=== PATIENT | male | born 1945 | race Caucasian/White ===

== ENCOUNTER 2021-03-20 04:17 | Day surgery (SDC) | payer OTHER, MEDICARE ==
[2021-03-20] MEDS ORDERED: BUPIVACAINE HCL/PF 0.75% 10 ML VIAL ONE (07:14)
[2021-03-20] MEDS ORDERED: LIDOCAINE HCL/PF 1% SDV 5ML VIAL ONE (07:14)
[2021-03-20] MEDS ORDERED: SODIUM CHLORIDE 0.9% P/F 10 ML VIAL IJ ONE (07:31)
[2021-03-20 08:47] VITALS: BMI 32.0
[2021-03-20] MEDS ORDERED: LIDOCAINE HCL 1% PRESERVATIVE FREE - 30ML VIAL IJ ONE ×2 (10:23)
[2021-03-20] MEDS ORDERED: IOHEXOL 180 MG/1 ML ML IJ ONE ×2 (10:23)
[2021-03-20] MEDS ORDERED: BUPIVACAINE HCL/PF 0.75% 10 ML VIAL PNB ONE ×2 (10:23)
[2021-03-20 10:57] VITALS: BP 130/60; PULSE 56; TEMP 97.7
== END 2021-03-20 11:30 | disposition home or self-care (01) ==
LOC: JASU-SURG 04:17
PROVIDERS: ATTEND Pain Medicine Pain Medicine
PROC: BR16YZZ Fluoroscopy of Lumbar Facet Joint(s) using Other Contrast (ICD-10-PCS; 2021-03-20)
PROC: 3E0T3BZ Introduction of Anesthetic Agent into Peripheral Nerves and Plexi, Percutaneous Approach (ICD-10-PCS; principal; 2021-03-20 09:30)
DX: M47.816 Spondylosis without myelopathy or radiculopathy, lumbar region (principal)
CPT/HCPCS: 76000-TC-FY

== ENCOUNTER 2021-04-10 04:23 | Day surgery (SDC) | payer OTHER, MEDICARE ==
[2021-04-09 19:24] VITALS: BMI 32.3
[~2021-04-10 04:23] MED LIST: BUPIVACAINE HCL/PF 0.75% 10 ML VIAL PNB ONE; IOHEXOL 180 MG/1 ML ML IJ ONE
[2021-04-10] MEDS ORDERED: LIDOCAINE HCL 1% PRESERVATIVE FREE - 30ML VIAL IJ ONE (12:05)
[2021-04-10] MEDS ORDERED: BUPIVACAINE HCL/PF 0.75% 10 ML VIAL PNB ONE (12:11)
[2021-04-10] MEDS ORDERED: IOHEXOL 180 MG/1 ML ML IJ ONE (12:11)
[2021-04-10 15:28] VITALS: BP 130/60; PULSE 60; TEMP 98
== END 2021-04-10 12:45 | disposition home or self-care (01) ==
LOC: JASU-SURG 04:23
PROVIDERS: ATTEND Pain Medicine Pain Medicine
PROC: BR16YZZ Fluoroscopy of Lumbar Facet Joint(s) using Other Contrast (ICD-10-PCS; 2021-04-10)
PROC: 3E0T3BZ Introduction of Anesthetic Agent into Peripheral Nerves and Plexi, Percutaneous Approach (ICD-10-PCS; principal; 2021-04-10 11:00)
DX: M47.816 Spondylosis without myelopathy or radiculopathy, lumbar region (principal)
CPT/HCPCS: 76000-TC-FY

== ENCOUNTER 2021-04-15 07:27 | Day surgery (SDC) | payer OTHER, MEDICARE ==
[2021-04-08 15:25] VITALS: BMI 32.3
[2021-04-15] MEDS: CIPROFLOXACIN 0.3% EYE DROPS 5 ML BOTTLE ONE ×3 (08:05→08:15)
[2021-04-15] MEDS: CYCLOPENTOLATE 2% OPHTH SOLN 2 ML BOTTLE ONE ×3 (08:05→08:15)
[2021-04-15] MEDS: TROPICAMIDE 1% OPHTH SOLN 15 ML BOTTLE ONE ×3 (08:05→08:15)
[2021-04-15] MEDS: PHENYLEPHRINE 2.5% OPHTH SOLN 15 ML BOTTLE ONE ×3 (08:05→08:15)
[2021-04-15 08:21] VITALS: TEMP 98.1
[2021-04-15] MEDS ORDERED: MIDAZOLAM HCL 2 MG/2 ML SINGLE DOSE VIAL ONE (09:29)
[2021-04-15] MEDS ORDERED: LIDOCAINE 1% P/F 10 MG/ML VIAL ONE (09:33)
[2021-04-15] MEDS ORDERED: TETRACAINE 0.5% OPHTH SOLN 2 ML BOTTLE ONE (09:34)
[2021-04-15] MEDS ORDERED: CARBACHOL 0.01% INTRA-OCULAR 1.5 ML VIAL ONE (09:34)
[2021-04-15] MEDS ORDERED: BSS (NA/CA/MG/K) BALANCED SALT SOLUTION OPHTH SOLN 15 ML BOTTLE ONE (09:34)
[2021-04-15] MEDS ORDERED: NEO/POLYMYX B SULF/DEXAMETH OPHTHALMIC 5ML BOTTLE ONE (09:34)
[2021-04-15 11:06] VITALS: BP 129/65; PULSE 56
== END 2021-04-15 11:05 | disposition home or self-care (01) ==
LOC: FASU 07:27
PROVIDERS: ATTEND Ophthalmology
PROC: 08RK3JZ Replacement of Left Lens with Synthetic Substitute, Percutaneous Approach (ICD-10-PCS; principal; 2021-04-15 09:51)
DX: H26.8 Other specified cataract (principal)
CPT/HCPCS: 82962

== ENCOUNTER 2021-05-01 04:21 | Day surgery (SDC) | payer OTHER, MEDICARE ==
[2021-04-30 11:40] VITALS: BMI 32.3
[2021-05-01 16:39] VITALS: BP 130/55; PULSE 55; TEMP 98.2
== END 2021-05-01 16:00 | disposition home or self-care (01) ==
LOC: JASU-SURG 04:21
PROVIDERS: ATTEND Pain Medicine Pain Medicine
PROC: 01HY3MZ Insertion of Neurostimulator Lead into Peripheral Nerve, Percutaneous Approach (ICD-10-PCS; principal; 2021-05-01 15:00)
DX: G89.4 Chronic pain syndrome (principal)
CPT/HCPCS: 64555; C1778; 82962

== ENCOUNTER 2021-05-18 07:31 | Day surgery (SDC) | payer OTHER, MEDICARE ==
[2021-05-15 16:17] VITALS: BMI 32.3
[2021-05-18] MEDS: TROPICAMIDE 1% OPHTH SOLN 15 ML BOTTLE ONE ×3 (08:00→08:10)
[2021-05-18] MEDS: PHENYLEPHRINE 2.5% OPHTH SOLN 15 ML BOTTLE ONE ×3 (08:00→08:10)
[2021-05-18] MEDS: CIPROFLOXACIN 0.3% EYE DROPS 5 ML BOTTLE ONE ×3 (08:00→08:10)
[2021-05-18] MEDS: CYCLOPENTOLATE 2% OPHTH SOLN 2 ML BOTTLE ONE ×3 (08:00→08:10)
[2021-05-18] MEDS ORDERED: CARBACHOL 0.01% INTRA-OCULAR 1.5 ML VIAL ONE (08:26)
[2021-05-18] MEDS ORDERED: NEO/POLYMYX B SULF/DEXAMETH OPHTHALMIC 5ML BOTTLE ONE (08:26)
[2021-05-18] MEDS ORDERED: BSS (NA/CA/MG/K) BALANCED SALT SOLUTION OPHTH SOLN 15 ML BOTTLE ONE (08:26)
[2021-05-18] MEDS ORDERED: LIDOCAINE 1% P/F 10 MG/ML VIAL ONE (08:26)
[2021-05-18] MEDS ORDERED: TETRACAINE 0.5% OPHTH SOLN 2 ML BOTTLE ONE (08:26)
[2021-05-18] MEDS ORDERED: MIDAZOLAM HCL 2 MG/2 ML SINGLE DOSE VIAL ONE (09:30)
[2021-05-18 10:31] VITALS: PULSE 63; TEMP 97.7
[2021-05-18 10:32] VITALS: BP 148/55
== END 2021-05-18 10:38 | disposition home or self-care (01) ==
LOC: FASU 07:31 → MERGE 08:00 → FASU 10:38
PROVIDERS: ATTEND Ophthalmology
PROC: 08RJ3JZ Replacement of Right Lens with Synthetic Substitute, Percutaneous Approach (ICD-10-PCS; principal; 2021-05-18 09:36)
DX: H26.8 Other specified cataract (principal)
CPT/HCPCS: 82962

== ENCOUNTER 2021-08-14 04:21 | Day surgery (SDC) | payer OTHER, MEDICARE ==
[2021-08-12 17:49] VITALS: BMI 32.7
[2021-08-14] MEDS ORDERED: BUPIVACAINE HCL/PF 0.75% 10 ML VIAL ONE (07:32)
[2021-08-14] MEDS ORDERED: DEXAMETHASONE SOD PHOSPHATE 10 MG/1 ML VIAL ONE (07:34)
[2021-08-14] MEDS ORDERED: LIDOCAINE HCL/PF 1% SDV 5ML VIAL ONE (07:38)
[2021-08-14] MEDS ORDERED: LIDOCAINE HCL/PF 2% SDV 5ML VIAL ONE (07:38)
[2021-08-14] MEDS ORDERED: BUPIVACAINE HCL/PF 0.5% (5MG/ML) 10 ML VIAL ONE (07:48)
[2021-08-14] MEDS ORDERED: DEXAMETHASONE SOD PHOSPHATE 10 MG/1 ML VIAL IVPUSH ONE (10:11)
[2021-08-14] MEDS ORDERED: IOHEXOL 180 MG/1 ML ML IJ ONE (10:11)
[2021-08-14] MEDS ORDERED: LIDOCAINE HCL/PF 2% SDV 5ML VIAL PNB ONE (10:11)
[2021-08-14] MEDS ORDERED: LIDOCAINE 1% P/F 10 MG/ML VIAL PNB ONE (10:11)
[2021-08-14] MEDS ORDERED: BUPIVACAINE HCL/PF 0.75% 10 ML VIAL PNB ONE (10:12)
[2021-08-14 10:56] VITALS: BP 165/79; PULSE 65; TEMP 98.5
== END 2021-08-14 11:00 | disposition home or self-care (01) ==
LOC: JASU-SURG 04:21
PROVIDERS: ATTEND Pain Medicine Pain Medicine
PROC: 3E0T3TZ Introduction of Destructive Agent into Peripheral Nerves and Plexi, Percutaneous Approach (ICD-10-PCS; principal; 2021-08-14 09:30)
PROC: BR16YZZ Fluoroscopy of Lumbar Facet Joint(s) using Other Contrast (ICD-10-PCS; 2021-08-14 09:30)
DX: M47.816 Spondylosis without myelopathy or radiculopathy, lumbar region (principal)
CPT/HCPCS: 76000-TC-FY; J1100

== ENCOUNTER 2021-09-08 04:34 | Day surgery (SDC) | payer OTHER, MEDICARE ==
[2021-09-04 18:43] VITALS: BMI 32.7
[2021-09-08] MEDS ORDERED: LIDOCAINE HCL/PF 2% SDV 5ML VIAL ONE (11:09)
[2021-09-08] MEDS ORDERED: LIDOCAINE HCL 1% PRESERVATIVE FREE - 30ML VIAL IJ ONE ×2 (11:26)
[2021-09-08] MEDS ORDERED: LIDOCAINE HCL 2% (50ML VIAL) INF ONE ×2 (11:27)
[2021-09-08] MEDS ORDERED: BUPIVACAINE HCL/PF 0.75% 10 ML VIAL NR ONE ×2 (11:28)
[2021-09-08] MEDS ORDERED: DEXAMETHASONE SOD PHOSPHATE 10 MG/1 ML VIAL IM ONE (11:28)
[2021-09-08] MEDS ORDERED: IOHEXOL 180 MG/1 ML ML IJ ONE (11:29)
[2021-09-08 12:56] VITALS: BP 153/62; PULSE 52; TEMP 97.7
== END 2021-09-08 12:05 | disposition home or self-care (01) ==
LOC: JASU-SURG 04:34
PROVIDERS: ATTEND Pain Medicine Pain Medicine
PROC: 3E0T3TZ Introduction of Destructive Agent into Peripheral Nerves and Plexi, Percutaneous Approach (ICD-10-PCS; principal; 2021-09-08 10:15)
DX: M47.816 Spondylosis without myelopathy or radiculopathy, lumbar region (principal)
CPT/HCPCS: 76000-TC-FY; J1100

== ENCOUNTER 2021-11-14 20:15 | Emergency (ER) | payer OTHER, MEDICARE ==
[2021-11-14 20:52] VITALS: TEMP 98.9; BMI 32.3
[2021-11-14] MEDS ORDERED: IBUPROFEN 600 MG TABLET (FP) PO ONE ×2 (21:13→21:15)
[2021-11-14] MEDS ORDERED: ACETAMINOPHEN 325 MG TABLET (FP) PO ONE (21:19)
[2021-11-14] MEDS ORDERED: ACETAMINOPHEN 325 MG TABLET (FP) ONE (21:58)
[2021-11-14 22:26] VITALS: BP 128/68; PULSE 65
== END 2021-11-14 22:55 | disposition home or self-care (01) ==
LOC: JER 20:15
DX: M79.604 Pain in right leg (principal)
CPT/HCPCS: 93971-TC; 99283-25

== ENCOUNTER 2021-11-20 14:38 | Emergency (ER) | payer OTHER, MEDICARE ==
[2021-11-20 14:52] VITALS: TEMP 98; BMI 37.4
[2021-11-20 16:00] VITALS: BP 147/63; PULSE 67
== END 2021-11-20 16:55 | disposition home or self-care (01) ==
LOC: JER 14:38
DX: J06.9 Acute upper respiratory infection, unspecified (principal)
CPT/HCPCS: 87804; 99283-25; C9803; U0003; U0005

== ENCOUNTER 2021-11-22 10:15 | Emergency (ER) | payer OTHER, MEDICARE ==
[2021-11-22 10:40] VITALS: BMI 37.4
[2021-11-22] MEDS ORDERED: ACETAMINOPHEN 500 MG TABLET (FP) PO ONE (12:13)
[2021-11-22] MEDS ORDERED: ACETAMINOPHEN 325 MG TABLET (FP) ONE (12:54)
[2021-11-22 14:39] VITALS: TEMP 99.9
[2021-11-22 15:24] LABS: BASO % 0.3 % (0-2.0); EOS % 0.1 % (0-4.5); HEMATOCRIT 40.9 % (35.4-49); HEMOGLOBIN 13.4 GM/dL (11.7-16.9); LYMPH % 12.2 % (8-40); MCHC 32.8 g/dl (32.0-35.9); MEAN CELL VOLUME 91.3 fl (80-96); MEAN PLT VOLUME 8.3 fl (7.5-11.1); NEUT % 81.4 % (42.8-82.8); PH,URINE 7.5 (5.0-8.0); PLATELET COUNT 167 10^3/uL (134-434); RBC 4.47 M/mm3 (4.00-5.60); RDW 14.4 % (11.9-15.9); URINE APPEARANCE CLEAR; URINE BILIRUBIN NEGATIVE (NEGATIVE); URINE COLOR YELLOW; URINE GLUCOSE (UA) NEGATIVE (NEGATIVE); URINE KETONE NEGATIVE (NEGATIVE); URINE LEUK ESTERASE NEGATIVE (NEGATIVE); URINE NITRITE NEGATIVE (NEGATIVE); URINE PROTEIN NEGATIVE (NEGATIVE); URINE UROBILINOGEN 0.2 mg/dL (0.2-1.0); WHITE BLOOD COUNT 9.8 K/mm3 (4.0-10.0)
[2021-11-22 15:55] LABS: CALCIUM 8.7 mg/dL (8.5-10.1)
[2021-11-22 15:59] LABS: CREATININE 1.2 mg/dL (0.55-1.3)
[2021-11-22 16:00] LABS: BILIRUBIN,TOTAL 0.8 mg/dL (0.2-1); TOT PROT 6.5 g/dl (6.4-8.2)
[2021-11-22] MEDS ORDERED: SOTROVIMAB 500 MG in SODIUM CHLORIDE 100 ML IVPB ONE (17:27)
[2021-11-22 21:21] VITALS: BP 126/75; PULSE 69
== END 2021-11-22 21:41 | disposition home or self-care (01) ==
LOC: JER 10:15
PROC: 3E033GC Introduction of Other Therapeutic Substance into Peripheral Vein, Percutaneous Approach (ICD-10-PCS; principal; 2021-11-22)
DX: M25.551 Pain in right hip (principal); U07.1 COVID-19
CPT/HCPCS: 36415; 71045-TC-FY; 73523-TC-FY; 80053; 81003; 85025; 87040; 87086; 87804; 93005; 93010; 99285-25; C9803; M0247; Q0247; U0003; U0005

== ENCOUNTER 2022-03-02 04:32 | Day surgery (SDC) | payer OTHER, MEDICARE ==
[2022-02-26 16:46] VITALS: BMI 32.3
[~2022-03-02 04:32] MED LIST changes: -BUPIVACAINE HCL/PF 0.75% 10 ML VIAL PNB ONE; +DEXAMETHASONE SOD PHOSPHATE 10 MG/1 ML VIAL IVPUSH ONE; -IOHEXOL 180 MG/1 ML ML IJ ONE
[2022-03-02] MEDS ORDERED: DEXAMETHASONE SOD PHOSPHATE 10 MG/1 ML VIAL ONE (07:38)
[2022-03-02] MEDS ORDERED: LIDOCAINE HCL/PF 1% SDV 5ML VIAL ONE (07:38)
[2022-03-02] MEDS ORDERED: LIDOCAINE HCL 1% PRESERVATIVE FREE - 30ML VIAL IJ ONE ×2 (09:03)
[2022-03-02] MEDS ORDERED: IOHEXOL 180 MG/1 ML ML IJ ONE ×2 (09:06)
[2022-03-02] MEDS ORDERED: DEXAMETHASONE SOD PHOSPHATE 10 MG/1 ML VIAL IVPUSH ONE (09:12)
[2022-03-02 10:11] VITALS: BP 140/70; PULSE 68; TEMP 98
== END 2022-03-02 10:05 | disposition home or self-care (01) ==
LOC: JASU-SURG 04:32
PROVIDERS: ATTEND Pain Medicine Pain Medicine
PROC: 3E0R33Z Introduction of Anti-inflammatory into Spinal Canal, Percutaneous Approach (ICD-10-PCS; 2022-03-02)
PROC: B01BYZZ Fluoroscopy of Spinal Cord using Other Contrast (ICD-10-PCS; 2022-03-02)
PROC: 3E0R3BZ Introduction of Anesthetic Agent into Spinal Canal, Percutaneous Approach (ICD-10-PCS; principal; 2022-03-02 08:30)
DX: M54.16 Radiculopathy, lumbar region (principal); M48.061 Spinal stenosis, lumbar region without neurogenic claudication; I10 Essential (primary) hypertension; E11.9 Type 2 diabetes mellitus without complications
CPT/HCPCS: 76000-TC-FY; J1100

== ENCOUNTER → 2022-04-20 | Day surgery (SDC) | payer OTHER, MEDICARE ==
[2022-04-15 15:44] VITALS: BMI 32.3
[~2022-04-20] MED LIST changes: +BUPIVACAINE HCL/PF 0.75% 10 ML VIAL ONE; -DEXAMETHASONE SOD PHOSPHATE 10 MG/1 ML VIAL IVPUSH ONE; +LIDOCAINE HCL/PF 1% SDV 5ML VIAL ONE; +LIDOCAINE HCL/PF 2% SDV 5ML VIAL ONE
== END | disposition home or self-care (01) ==
LOC: JASU-SURG 04:04
PROVIDERS: ATTEND Pain Medicine Pain Medicine
DX: Z53.8 Procedure and treatment not carried out for other reasons (principal)

== ENCOUNTER 2022-05-21 04:02 | Day surgery (SDC) | payer OTHER, MEDICARE ==
[2022-05-19 09:51] VITALS: BMI 32.3
[2022-05-21] MEDS ORDERED: BUPIVACAINE HCL/PF 0.75% 10 ML VIAL ONE (07:12)
[2022-05-21] MEDS ORDERED: LIDOCAINE HCL/PF 1% SDV 5ML VIAL ONE (07:13)
[2022-05-21] MEDS ORDERED: LIDOCAINE 1% P/F 10 MG/ML VIAL INF ONE ×3 (07:22→08:24)
[2022-05-21] MEDS ORDERED: DEXAMETHASONE SOD PHOSPHATE 10 MG/1 ML VIAL ONE (07:27)
[2022-05-21] MEDS ORDERED: LIDOCAINE HCL/PF 2% SDV 5ML VIAL ONE (07:28)
[2022-05-21] MEDS ORDERED: IOHEXOL 180 MG/1 ML ML IJ ONE ×2 (07:29→08:24)
[2022-05-21] MEDS ORDERED: DEXAMETHASONE SOD PHOSPHATE 10 MG/1 ML VIAL IVPUSH ONE ×2 (07:30→08:25)
[2022-05-21] MEDS ORDERED: BUPIVACAINE HCL/PF 0.75% 10 ML VIAL NR ONE ×2 (08:25)
[2022-05-21] MEDS ORDERED: LIDOCAINE HCL 2% 100 MG/5 ML DISP.SYRIN NR ONE (08:30)
[2022-05-21 09:10] VITALS: BP 110/61; PULSE 65; TEMP 98.7
== END 2022-05-21 09:24 | disposition home or self-care (01) ==
LOC: JASU-SURG 04:02
PROVIDERS: ATTEND Pain Medicine Pain Medicine
PROC: 3E0T3TZ Introduction of Destructive Agent into Peripheral Nerves and Plexi, Percutaneous Approach (ICD-10-PCS; principal; 2022-05-21 08:45)
PROC: BR16YZZ Fluoroscopy of Lumbar Facet Joint(s) using Other Contrast (ICD-10-PCS; 2022-05-21 08:45)
DX: M47.816 Spondylosis without myelopathy or radiculopathy, lumbar region (principal)
CPT/HCPCS: 76000-TC-FY; J1100

== ENCOUNTER 2022-06-29 04:21 | Day surgery (SDC) | payer OTHER, MEDICARE ==
[2022-06-28 09:29] VITALS: BMI 34.1
[2022-06-29] MEDS ORDERED: BUPIVACAINE HCL/PF 0.5% (5MG/ML) 10 ML VIAL ONE (07:16)
[2022-06-29] MEDS ORDERED: LIDOCAINE HCL/PF 1% SDV 5ML VIAL ONE (07:16)
[2022-06-29] MEDS ORDERED: TRIAMCINOLONE ACET 40MG/1ML VIAL ONE (07:16)
[2022-06-29] MEDS ORDERED: MIDAZOLAM HCL 2 MG/2 ML SINGLE DOSE VIAL ONE (10:53)
[2022-06-29] MEDS ORDERED: LIDOCAINE HCL/PF 2% SDV 5ML VIAL ONE (11:08)
[2022-06-29] MEDS ORDERED: ceFAZolin SODIUM 1 GM VIAL ONE (11:31)
[2022-06-29] MEDS ORDERED: DEXAMETHASONE SOD PHOSPHATE 4 MG/1 ML VIAL ONE (11:31)
[2022-06-29] MEDS ORDERED: ONDANSETRON 4 MG/2 ML VIAL ONE (11:31)
[2022-06-29] MEDS ORDERED: ceFAZolin SODIUM 1 GM VIAL IVPB ONE (11:32)
[2022-06-29] MEDS ORDERED: LIDOCAINE HCL 1% PRESERVATIVE FREE - 30ML VIAL IJ ONE (11:37)
[2022-06-29] MEDS ORDERED: LIDOCAINE HCL/PF 2% SDV 5ML VIAL SQ ONE (11:38)
[2022-06-29 13:43] VITALS: RESP 20
[2022-06-29] MEDS ORDERED: oxyCODONE HCL 10 MG SUSTAINED ACTING TABLET ONE (14:15)
[2022-06-29 17:40] VITALS: BP 146/66; PULSE 78; TEMP 97.6
== END 2022-06-29 15:45 | disposition home or self-care (01) ==
LOC: JASU-SURG 04:21
PROVIDERS: ATTEND Pain Medicine Pain Medicine
PROC: BR19ZZZ Fluoroscopy of Lumbar Spine (ICD-10-PCS; 2022-06-29)
PROC: 01NB3ZZ Release Lumbar Nerve, Percutaneous Approach (ICD-10-PCS; principal; 2022-06-29 10:30)
DX: M48.062 Spinal stenosis, lumbar region with neurogenic claudication (principal)
CPT/HCPCS: 0275T; C1889; 76000-TC-FY; 82962; 88304-TC; 88311-TC

== ENCOUNTER 2022-09-07 04:33 | Day surgery (SDC) | payer OTHER, MEDICARE ==
[2022-09-06 12:23] VITALS: BMI 31.5
[2022-09-07] MEDS ORDERED: TRIAMCINOLONE ACET 40MG/1ML VIAL ONE ×2 (07:34→11:54)
[2022-09-07] MEDS ORDERED: BUPIVACAINE HCL/PF 0.5% (5MG/ML) 10 ML VIAL ONE ×2 (07:35→11:46)
[2022-09-07] MEDS ORDERED: LIDOCAINE HCL/PF 1% SDV 5ML VIAL ONE (07:35)
[2022-09-07] MEDS ORDERED: LIDOCAINE HCL 1% PRESERVATIVE FREE - 30ML VIAL IJ ONE (11:56)
[2022-09-07] MEDS ORDERED: TRIAMCINOLONE ACETONIDE 40 MG/ML 10 ML VIAL IJ ONE (11:58)
[2022-09-07] MEDS ORDERED: BUPIVACAINE HCL/PF 0.5% (5 MG/ML) 30 ML VIAL IJ ONE ×2 (11:58)
[2022-09-07] MEDS ORDERED: IOHEXOL 180 MG/1 ML ML IJ ONE (11:59)
[2022-09-07 16:10] VITALS: RESP 20
[2022-09-07 17:43] VITALS: BP 130/80; PULSE 70; TEMP 98
== END 2022-09-07 13:00 | disposition home or self-care (01) ==
LOC: JASU-SURG 04:33
PROVIDERS: ATTEND Pain Medicine Pain Medicine
PROC: 3E0U3BZ Introduction of Anesthetic Agent into Joints, Percutaneous Approach (ICD-10-PCS; 2022-09-07)
PROC: 3E0U33Z Introduction of Anti-inflammatory into Joints, Percutaneous Approach (ICD-10-PCS; principal; 2022-09-07 11:30)
DX: M53.3 Sacrococcygeal disorders, not elsewhere classified (principal)
CPT/HCPCS: 76000-TC-FY

== ENCOUNTER 2022-11-17 04:05 | Inpatient (IN) | payer OTHER, MEDICARE ==
[2022-11-11 11:49] VITALS: BMI 30.1
[~2022-11-17 04:05] MED LIST changes: +BUPIVACAINE HCL/PF 0.5% (5MG/ML) 10 ML VIAL IJ ONE; -BUPIVACAINE HCL/PF 0.75% 10 ML VIAL ONE; -LIDOCAINE HCL/PF 1% SDV 5ML VIAL ONE; -LIDOCAINE HCL/PF 2% SDV 5ML VIAL ONE
[2022-11-17] MEDS ORDERED: ceFAZolin SODIUM 1 GM VIAL ONE ×2 (07:29→16:20)
[2022-11-17] MEDS ORDERED: THROMBIN (BOVINE) 5,000 UNIT VIAL TP ONE ×2 (07:29→09:02)
[2022-11-17] MEDS ORDERED: BACITRACIN 15 GM TUBE TOPICAL OINTMENT ONE (07:30)
[2022-11-17] MEDS ORDERED: BUPIVACAINE HCL/PF 0.5% (5MG/ML) 10 ML VIAL ONE (07:30)
[2022-11-17] MEDS ORDERED: LIDOCAINE HCL/PF 2% SDV 5ML VIAL ONE (07:34)
[2022-11-17] MEDS ORDERED: FENTANYL CITRATE/PF 50 MCG/ML VIAL ONE ×3 (07:34→12:05)
[2022-11-17] MEDS ORDERED: ONDANSETRON 4 MG/2 ML VIAL ONE (07:34)
[2022-11-17] MEDS ORDERED: DEXAMETHASONE SOD PHOSPHATE 4 MG/1 ML VIAL ONE (07:34)
[2022-11-17] MEDS ORDERED: ROCURONIUM BROMIDE 50 MG/5 ML SYRINGE ONE ×2 (07:35→08:54)
[2022-11-17] MEDS ORDERED: MIDAZOLAM HCL 2 MG/2 ML SINGLE DOSE VIAL ONE (07:35)
[2022-11-17] MEDS ORDERED: PROPOFOL 20 ML ONE ×2 (07:35→10:45)
[2022-11-17] MEDS ORDERED: ceFAZolin 2 GRAM PREMIX BAG IVPB ONE (08:34)
[2022-11-17] MEDS ORDERED: ceFAZolin SODIUM 1 GM VIAL IVPB ONE (09:04)
[2022-11-17] MEDS ORDERED: HYDROmorphone HCl 2 MG/ML VIAL ONE ×2 (09:48→12:23)
[2022-11-17] MEDS ORDERED: NEOSTIGMINE METHYLSULFATE 0.5 MG/ML - 10 ML MDV ONE (10:29)
[2022-11-17] MEDS ORDERED: GLYCOPYRROLATE 0.2 MG/1 ML VIAL ONE (10:30)
[2022-11-17] MEDS: LACTATED RINGERS SOLUTION 1,000 ML IV SCH (11:01)
[2022-11-17] MEDS ORDERED: ONDANSETRON 4 MG/2 ML VIAL IVPUSH PRN ×2 (11:09→12:01)
[2022-11-17] MEDS ORDERED: diphenhydrAMINE HCL 25 MG CAPSULE (FP) PO PRN (11:09)
[2022-11-17] MEDS ORDERED: LACTATED RINGERS SOLUTION 1,000 ML/1,000 ML INFUS.BAG IV SCH (11:15)
[2022-11-17] MEDS ORDERED: HEPARIN NA (PORCINE) 5,000 UNITS/ML 1ML VIAL SQ SCH (11:15)
[2022-11-17] MEDS: PATIENT'S OWN MEDICATION (NON-FORMULARY) (Evolocumab [Repatha Sureclick] 140 MG/ML Pen.Inj SQ SCH (11:30)
[2022-11-17] MEDS ORDERED: ACETAMINOPHEN 1000 MG/100 ML BAG IVPB SCH (11:45)
[2022-11-17] MEDS ORDERED: PROMETHAZINE HCL 25 MG/1 ML VIAL IVPUSH PRN (12:01)
[2022-11-17] MEDS ORDERED: ACETAMINOPHEN 1000 MG/100 ML BAG IVPB ONE (12:02)
[2022-11-17] MEDS ORDERED: HYDROmorphone HCL CARPU-JECT 2 MG/1 ML DISP.SYRIN IVPUSH PRN (12:02)
[2022-11-17] MEDS: HYDROmorphone HCL CARPU-JECT 2 MG/1 ML DISP.SYRIN IVPUSH PRN ×4 (12:25→14:14)
[2022-11-17] MEDS: HYDROmorphone *PCA* 10MG/50ML DISP.SYRIN PCA SCH (13:00)
[2022-11-17] MEDS: DOCUSATE SODIUM 100 MG CAPSULE (FP) PO SCH ×2 (14:00→23:12)
[2022-11-17] MEDS: GABAPENTIN 300 MG CAPSULE PO SCH ×2 (14:00→23:12)
[2022-11-17] MEDS: CEFAZOLIN 1 GM in DEXTROSE 5%-WATER - 50 ML IVPB SCH (16:31)
[2022-11-17] MEDS ORDERED: ACETAMINOPHEN INJECTION 100 ML IVPB ONE (17:39)
[2022-11-17] MEDS: ACETAMINOPHEN 1000 MG/100 ML BAG IVPB SCH (18:00)
[2022-11-17] MEDS ORDERED: CEFAZOLIN 1 GM in DEXTROSE 5%-WATER - 50 ML IVPB SCH (18:00)
[2022-11-17] MEDS: INSULIN SLIDING SCALE (NOVOLOG) 1 VIAL SQ SCH ×2 (18:01→21:11)
[2022-11-17] MEDS: POTASSIUM CITRATE 15 MEQ PO SCH (22:00)
[2022-11-18] MEDS: ACETAMINOPHEN 1000 MG/100 ML BAG IVPB SCH ×3 (00:43→11:42)
[2022-11-18] MEDS: CEFAZOLIN 1 GM in DEXTROSE 5%-WATER - 50 ML IVPB SCH (00:47)
[2022-11-18] MEDS: DOCUSATE SODIUM 100 MG CAPSULE (FP) PO SCH ×3 (05:33→21:59)
[2022-11-18] MEDS: GABAPENTIN 300 MG CAPSULE PO SCH ×3 (05:34→21:59)
[2022-11-18] MEDS: LEVOTHYROXINE NA 112 MCG TABLET (FP) PO SCH (06:02)
[2022-11-18] MEDS: INSULIN SLIDING SCALE (NOVOLOG) 1 VIAL SQ SCH ×4 (06:08→22:09)
[2022-11-18] MEDS: LORATADINE 10 MG TABLET PO SCH (10:04)
[2022-11-18] MEDS: FOLIC ACID 1 MG TABLET (FP) PO SCH (10:04)
[2022-11-18] MEDS: DULoxetine HCL 30 MG CAPSULE.DR PO SCH (10:04)
[2022-11-18] MEDS: FERROUS SO4 325 MG TABLET (FP) PO SCH (10:04)
[2022-11-18] MEDS: DOXAZOSIN MESYLATE 8 MG TABLET PO SCH (10:05)
[2022-11-18 10:45] LABS: HEMATOCRIT 34.3 % (35.4-49); HEMOGLOBIN 11.1 GM/dL (11.7-16.9); MCH 29.9 pg (25.7-33.7); MCHC 32.4 g/dl (32.0-35.9); MEAN CELL VOLUME 92.3 fl (80-96); MEAN PLT VOLUME 8.5 fl (7.5-11.1); PLATELET COUNT 201 10^3/uL (134-434); RBC 3.72 M/mm3 (4.00-5.60); RDW 14.7 % (11.9-15.9); WHITE BLOOD COUNT 7.4 K/mm3 (4.0-10.0)
[2022-11-18 11:09] LABS: CALCIUM 8.6 mg/dL (8.5-10.1)
[2022-11-18 11:10] LABS: BLOOD UREA NITROGEN 17.4 mg/dL (7-18)
[2022-11-18] MEDS: PATIENT'S OWN MEDICATION (NON-FORMULARY) (Evolocumab [Repatha Sureclick] 140 MG/ML Pen.Inj SQ SCH (11:30)
[2022-11-18] MEDS: LACTATED RINGERS SOLUTION 1,000 ML IV SCH (12:15)
[2022-11-18] MEDS: FENOFIBRIC ACID 135 MG CAP PO SCH (12:21)
[2022-11-18] MEDS: HYDROmorphone *PCA* 10MG/50ML DISP.SYRIN PCA SCH (13:30)
[2022-11-18] MEDS ORDERED: LACTULOSE 20 GM/30 ML UDC (FOR ORAL USE ONLY) PO PRN (16:34)
[2022-11-18] MEDS ORDERED: LACTATED RINGERS SOLUTION 1,000 ML IV SCH (16:34)
[2022-11-18] MEDS: HEPARIN NA (PORCINE) 5,000 UNITS/ML 1ML VIAL SQ SCH ×2 (17:34→21:59)
[2022-11-19] MEDS: HEPARIN NA (PORCINE) 5,000 UNITS/ML 1ML VIAL SQ SCH ×3 (06:12→21:49)
[2022-11-19] MEDS: GABAPENTIN 300 MG CAPSULE PO SCH ×3 (06:12→21:49)
[2022-11-19] MEDS: DOCUSATE SODIUM 100 MG CAPSULE (FP) PO SCH ×3 (06:12→21:49)
[2022-11-19] MEDS: INSULIN SLIDING SCALE (NOVOLOG) 1 VIAL SQ SCH ×4 (06:22→22:44)
[2022-11-19] MEDS: LEVOTHYROXINE NA 112 MCG TABLET (FP) PO SCH (06:23)
[2022-11-19 10:11] LABS: HEMATOCRIT 33.4 % (35.4-49); HEMOGLOBIN 10.7 GM/dL (11.7-16.9); MCH 29.7 pg (25.7-33.7); MCHC 32.2 g/dl (32.0-35.9); MEAN CELL VOLUME 92.1 fl (80-96); MEAN PLT VOLUME 8.7 fl (7.5-11.1); PLATELET COUNT 196 10^3/uL (134-434); RBC 3.62 M/mm3 (4.00-5.60); RDW 14.5 % (11.9-15.9)
[2022-11-19 10:29] LABS: BLOOD UREA NITROGEN 12.1 mg/dL (7-18)
[2022-11-19 10:30] LABS: CALCIUM 8.5 mg/dL (8.5-10.1)
[2022-11-19 10:33] LABS: CREATININE 0.8 mg/dL (0.55-1.3)
[2022-11-19] MEDS: DOXAZOSIN MESYLATE 8 MG TABLET PO SCH (10:53)
[2022-11-19] MEDS: DULoxetine HCL 30 MG CAPSULE.DR PO SCH (10:54)
[2022-11-19] MEDS: LORATADINE 10 MG TABLET PO SCH (10:54)
[2022-11-19] MEDS: FERROUS SO4 325 MG TABLET (FP) PO SCH (10:54)
[2022-11-19] MEDS: FOLIC ACID 1 MG TABLET (FP) PO SCH (10:54)
[2022-11-19] MEDS ORDERED: oxyCODONE HCL 5 MG TABLET PO PRN (11:07)
[2022-11-19] MEDS: FENOFIBRIC ACID 135 MG CAP PO SCH (12:28)
[2022-11-19] MEDS: HYDROmorphone *PCA* 10MG/50ML DISP.SYRIN PCA SCH (13:05)
[2022-11-19] MEDS: oxyCODONE HCL 5 MG TABLET PO PRN ×2 (18:02→21:50)
[2022-11-19] MEDS: POTASSIUM CITRATE 15 MEQ PO SCH (19:28)
[2022-11-19] MEDS ORDERED: INSULIN (NOVOLOG) ASPART 100 UNITS/ML 10ML VIAL ONE (22:53)
[2022-11-20] MEDS: oxyCODONE HCL 5 MG TABLET PO PRN ×2 (04:16→09:50)
[2022-11-20] MEDS: GABAPENTIN 300 MG CAPSULE PO SCH ×3 (07:04→22:10)
[2022-11-20] MEDS: HEPARIN NA (PORCINE) 5,000 UNITS/ML 1ML VIAL SQ SCH ×3 (07:04→22:10)
[2022-11-20] MEDS: DOCUSATE SODIUM 100 MG CAPSULE (FP) PO SCH ×3 (07:04→22:10)
[2022-11-20] MEDS: LEVOTHYROXINE NA 112 MCG TABLET (FP) PO SCH (07:34)
[2022-11-20] MEDS: INSULIN SLIDING SCALE (NOVOLOG) 1 VIAL SQ SCH ×4 (07:44→22:18)
[2022-11-20 09:20] LABS: HEMATOCRIT 32.1 % (35.4-49); HEMOGLOBIN 10.6 GM/dL (11.7-16.9); MCH 30.3 pg (25.7-33.7); MCHC 33.1 g/dl (32.0-35.9); MEAN CELL VOLUME 91.6 fl (80-96); MEAN PLT VOLUME 8.5 fl (7.5-11.1); PLATELET COUNT 226 10^3/uL (134-434); RBC 3.51 M/mm3 (4.00-5.60); RDW 14.2 % (11.9-15.9)
[2022-11-20] MEDS: LORATADINE 10 MG TABLET PO SCH (09:49)
[2022-11-20] MEDS: FERROUS SO4 325 MG TABLET (FP) PO SCH (09:49)
[2022-11-20] MEDS: DULoxetine HCL 30 MG CAPSULE.DR PO SCH (09:49)
[2022-11-20] MEDS: FOLIC ACID 1 MG TABLET (FP) PO SCH (09:49)
[2022-11-20 09:54] LABS: BLOOD UREA NITROGEN 9.7 mg/dL (7-18)
[2022-11-20 09:57] LABS: CREATININE 0.8 mg/dL (0.55-1.3)
[2022-11-20] MEDS: DOXAZOSIN MESYLATE 8 MG TABLET PO SCH (09:58)
[2022-11-20] MEDS ORDERED: oxyCODONE HCL 5 MG TABLET PO PRN (10:37)
[2022-11-20] MEDS ORDERED: INSULIN (NOVOLOG) ASPART 100 UNITS/ML 10ML VIAL ONE ×2 (11:35→17:14)
[2022-11-20] MEDS: FENOFIBRIC ACID 135 MG CAP PO SCH (11:38)
[2022-11-20] MEDS: POLYETHYLENE GLYCOL (HEALTHYLAX) 3350 17 GM PACKET PO SCH (18:14)
[2022-11-21] MEDS: DOCUSATE SODIUM 100 MG CAPSULE (FP) PO SCH ×3 (06:38→22:24)
[2022-11-21] MEDS: GABAPENTIN 300 MG CAPSULE PO SCH ×3 (06:39→22:24)
[2022-11-21] MEDS: HEPARIN NA (PORCINE) 5,000 UNITS/ML 1ML VIAL SQ SCH ×3 (06:39→22:24)
[2022-11-21] MEDS: LEVOTHYROXINE NA 112 MCG TABLET (FP) PO SCH (06:39)
[2022-11-21] MEDS: INSULIN SLIDING SCALE (NOVOLOG) 1 VIAL SQ SCH ×4 (06:45→22:25)
[2022-11-21] MEDS: DULoxetine HCL 30 MG CAPSULE.DR PO SCH (09:50)
[2022-11-21] MEDS: FOLIC ACID 1 MG TABLET (FP) PO SCH (09:50)
[2022-11-21] MEDS: DOXAZOSIN MESYLATE 8 MG TABLET PO SCH (09:50)
[2022-11-21] MEDS: FERROUS SO4 325 MG TABLET (FP) PO SCH (09:50)
[2022-11-21] MEDS: LORATADINE 10 MG TABLET PO SCH (09:50)
[2022-11-21] MEDS: POLYETHYLENE GLYCOL (HEALTHYLAX) 3350 17 GM PACKET PO SCH (09:51)
[2022-11-21] MEDS: FENOFIBRIC ACID 135 MG CAP PO SCH (13:28)
[2022-11-21] MEDS ORDERED: ACETAMINOPHEN 325 MG TABLET (FP) PO PRN (13:29)
[2022-11-21] MEDS: oxyCODONE HCL 5 MG TABLET PO PRN ×2 (18:32→22:30)
[2022-11-22] MEDS: GABAPENTIN 300 MG CAPSULE PO SCH ×3 (06:56→22:09)
[2022-11-22] MEDS: LEVOTHYROXINE NA 112 MCG TABLET (FP) PO SCH (06:56)
[2022-11-22] MEDS: DOCUSATE SODIUM 100 MG CAPSULE (FP) PO SCH ×3 (06:56→22:09)
[2022-11-22] MEDS: HEPARIN NA (PORCINE) 5,000 UNITS/ML 1ML VIAL SQ SCH ×3 (06:56→22:09)
[2022-11-22] MEDS: oxyCODONE HCL 5 MG TABLET PO PRN ×3 (07:21→22:11)
[2022-11-22] MEDS: INSULIN SLIDING SCALE (NOVOLOG) 1 VIAL SQ SCH ×4 (07:22→22:15)
[2022-11-22] MEDS: FERROUS SO4 325 MG TABLET (FP) PO SCH (10:52)
[2022-11-22] MEDS: POLYETHYLENE GLYCOL (HEALTHYLAX) 3350 17 GM PACKET PO SCH (10:52)
[2022-11-22] MEDS: LORATADINE 10 MG TABLET PO SCH (10:52)
[2022-11-22] MEDS: DULoxetine HCL 30 MG CAPSULE.DR PO SCH (10:52)
[2022-11-22] MEDS: FOLIC ACID 1 MG TABLET (FP) PO SCH (10:52)
[2022-11-22] MEDS: FENOFIBRIC ACID 135 MG CAP PO SCH (11:05)
[2022-11-22] MEDS: DOXAZOSIN MESYLATE 4 MG TABLET PO SCH (11:05)
[2022-11-22] MEDS ORDERED: oxyCODONE HCL 5 MG TABLET PO PRN (15:44)
[2022-11-23] MEDS: DOCUSATE SODIUM 100 MG CAPSULE (FP) PO SCH ×3 (07:09→22:53)
[2022-11-23] MEDS: HEPARIN NA (PORCINE) 5,000 UNITS/ML 1ML VIAL SQ SCH ×3 (07:10→22:53)
[2022-11-23] MEDS: INSULIN SLIDING SCALE (NOVOLOG) 1 VIAL SQ SCH ×4 (07:10→22:57)
[2022-11-23] MEDS: GABAPENTIN 300 MG CAPSULE PO SCH ×3 (07:10→22:53)
[2022-11-23] MEDS: LEVOTHYROXINE NA 112 MCG TABLET (FP) PO SCH (07:11)
[2022-11-23] MEDS: oxyCODONE HCL 5 MG TABLET PO PRN ×2 (07:11→23:12)
[2022-11-23] MEDS: FOLIC ACID 1 MG TABLET (FP) PO SCH (10:04)
[2022-11-23] MEDS: LORATADINE 10 MG TABLET PO SCH (10:04)
[2022-11-23] MEDS: DOXAZOSIN MESYLATE 4 MG TABLET PO SCH (10:04)
[2022-11-23] MEDS: FENOFIBRIC ACID 135 MG CAP PO SCH (10:04)
[2022-11-23] MEDS: FERROUS SO4 325 MG TABLET (FP) PO SCH (10:04)
[2022-11-23] MEDS: POLYETHYLENE GLYCOL (HEALTHYLAX) 3350 17 GM PACKET PO SCH (10:04)
[2022-11-23] MEDS: DULoxetine HCL 30 MG CAPSULE.DR PO SCH (10:05)
[2022-11-24] MEDS: DOCUSATE SODIUM 100 MG CAPSULE (FP) PO SCH ×3 (06:58→21:56)
[2022-11-24] MEDS: INSULIN SLIDING SCALE (NOVOLOG) 1 VIAL SQ SCH ×4 (06:58→21:58)
[2022-11-24] MEDS: HEPARIN NA (PORCINE) 5,000 UNITS/ML 1ML VIAL SQ SCH ×3 (06:58→21:56)
[2022-11-24] MEDS: GABAPENTIN 300 MG CAPSULE PO SCH ×3 (06:58→21:56)
[2022-11-24] MEDS: LEVOTHYROXINE NA 112 MCG TABLET (FP) PO SCH (06:58)
[2022-11-24 07:02] VITALS: RESP 18
[2022-11-24 07:23] LABS: BASO % 1.1 % (0-2.0); EOS % 6.6 % (0-4.5); HEMATOCRIT 32.3 % (35.4-49); HEMOGLOBIN 10.9 GM/dL (11.7-16.9); LYMPH % 31.4 % (8-40); MCH 30.4 pg (25.7-33.7); MCHC 33.6 g/dl (32.0-35.9); MEAN CELL VOLUME 90.2 fl (80-96); MONO % 9.8 % (3.8-10.2); NEUT % 51.1 % (42.8-82.8); PLATELET COUNT 304 10^3/uL (134-434); RBC 3.58 M/mm3 (4.00-5.60); RDW 13.8 % (11.9-15.9); WHITE BLOOD COUNT 5.9 K/mm3 (4.0-10.0)
[2022-11-24 07:48] LABS: ALBUMIN 2.7 g/dl (3.4-5.0); BLOOD UREA NITROGEN 17.9 mg/dL (7-18); CALCIUM 9.2 mg/dL (8.5-10.1)
[2022-11-24 07:51] LABS: CREATININE 0.8 mg/dL (0.55-1.3)
[2022-11-24 07:53] LABS: BILIRUBIN,TOTAL 0.4 mg/dL (0.2-1); TOT PROT 5.8 g/dl (6.4-8.2)
[2022-11-24] MEDS: FENOFIBRIC ACID 135 MG CAP PO SCH (10:06)
[2022-11-24] MEDS: DOXAZOSIN MESYLATE 4 MG TABLET PO SCH (10:06)
[2022-11-24] MEDS: FOLIC ACID 1 MG TABLET (FP) PO SCH (10:06)
[2022-11-24] MEDS: LORATADINE 10 MG TABLET PO SCH (10:06)
[2022-11-24] MEDS: DULoxetine HCL 30 MG CAPSULE.DR PO SCH (10:06)
[2022-11-24] MEDS: FERROUS SO4 325 MG TABLET (FP) PO SCH (10:07)
[2022-11-24] MEDS: POLYETHYLENE GLYCOL (HEALTHYLAX) 3350 17 GM PACKET PO SCH (10:07)
[2022-11-24] MEDS: oxyCODONE HCL 5 MG TABLET PO PRN (21:56)
[2022-11-25] MEDS: GABAPENTIN 300 MG CAPSULE PO SCH (05:59)
[2022-11-25] MEDS: DOCUSATE SODIUM 100 MG CAPSULE (FP) PO SCH (05:59)
[2022-11-25] MEDS: HEPARIN NA (PORCINE) 5,000 UNITS/ML 1ML VIAL SQ SCH (05:59)
[2022-11-25] MEDS: LEVOTHYROXINE NA 112 MCG TABLET (FP) PO SCH (06:00)
[2022-11-25] MEDS: INSULIN SLIDING SCALE (NOVOLOG) 1 VIAL SQ SCH ×2 (06:00→11:45)
[2022-11-25 07:25] VITALS: TEMP 97.8
[2022-11-25] MEDS: DULoxetine HCL 30 MG CAPSULE.DR PO SCH (09:32)
[2022-11-25] MEDS: FENOFIBRIC ACID 135 MG CAP PO SCH (09:32)
[2022-11-25] MEDS: FOLIC ACID 1 MG TABLET (FP) PO SCH (09:32)
[2022-11-25] MEDS: DOXAZOSIN MESYLATE 4 MG TABLET PO SCH (09:32)
[2022-11-25] MEDS: POLYETHYLENE GLYCOL (HEALTHYLAX) 3350 17 GM PACKET PO SCH (09:33)
[2022-11-25] MEDS: FERROUS SO4 325 MG TABLET (FP) PO SCH (09:33)
[2022-11-25] MEDS: LORATADINE 10 MG TABLET PO SCH (09:33)
[2022-11-25 09:43] VITALS: BP 103/63; PULSE 75
== END 2022-11-25 12:28 | DRG 517 ==
LOC: J2C 04:05 → J8W 22:01 → JERBED 11-21 16:17 → J7W 11-21 17:00
PROVIDERS: ADMIT Internal Medicine; ATTEND Internal Medicine
PROC: 01NR0ZZ Release Sacral Nerve, Open Approach (ICD-10-PCS; 2022-11-17)
PROC: 01NB0ZZ Release Lumbar Nerve, Open Approach (ICD-10-PCS; principal; 2022-11-17 08:00)
DX: M48.062 Spinal stenosis, lumbar region with neurogenic claudication (principal); M54.16 Radiculopathy, lumbar region; I10 Essential (primary) hypertension; E11.9 Type 2 diabetes mellitus without complications; E66.9 Obesity, unspecified; Z68.30 Body mass index [BMI] 30.0-30.9, adult; M51.27 Other intervertebral disc displacement, lumbosacral region; G47.33 Obstructive sleep apnea (adult) (pediatric); M71.38 Other bursal cyst, other site
CPT/HCPCS: 36415; 76000-TC-FY; 80048; 80053; 82962; 85025; 85027; 86850; 86900; 86901; 87081; 94660; 94760; 97116-GP; 97161-GP; C9803-CS; J1644; U0003; U0005

== ENCOUNTER 2023-03-02 07:50 | Emergency (ER) | payer OTHER, MEDICARE ==
[2023-03-02] MEDS ORDERED: ALBUTEROL SO4 2.5/IPRATROPIUM 0.5 INH SOL 3 ML VIAL.NEB. NEB ONE ×2 (08:26→08:34)
[2023-03-02 08:42] VITALS: BMI 29.3
[2023-03-02 10:01] VITALS: RESP 14
[2023-03-02 10:48] VITALS: BP 108/65; PULSE 118; TEMP 98.2
== END 2023-03-02 13:23 | disposition home or self-care (01) ==
LOC: JER 07:50
PROC: 3E0F7GC Introduction of Other Therapeutic Substance into Respiratory Tract, Via Natural or Artificial Opening (ICD-10-PCS; principal; 2023-03-02)
DX: S00.03XA Contusion of scalp, initial encounter (principal); M25.551 Pain in right hip; M62.81 Muscle weakness (generalized); R09.89 Other specified symptoms and signs involving the circulatory and respiratory systems; W01.0XXA Fall on same level from slipping, tripping and stumbling without subsequent striking against object, initial encounter
CPT/HCPCS: 70450-TC; 72125-TC; 72170-TC-FY; 99285-25

== ENCOUNTER 2023-04-12 04:19 | Day surgery (SDC) | payer OTHER, MEDICARE ==
[2023-04-08 10:00] VITALS: BMI 29.7
[~2023-04-12 04:19] MED LIST changes: -BUPIVACAINE HCL/PF 0.5% (5MG/ML) 10 ML VIAL IJ ONE; +LIDOCAINE HCL 1% PRESERVATIVE FREE - 30ML VIAL IJ ONE
[2023-04-12] MEDS ORDERED: LIDOCAINE HCL/PF 1% SDV 5ML VIAL ONE (07:24)
[2023-04-12 08:41] VITALS: RESP 18
[2023-04-12] MEDS ORDERED: LIDOCAINE HCL 1% PRESERVATIVE FREE - 30ML VIAL IJ ONE ×2 (10:39)
[2023-04-12 12:12] VITALS: TEMP 98.4
[2023-04-12 12:14] VITALS: BP 143/67; PULSE 62
[2023-04-12] MEDS ORDERED: ACETAMINOPHEN 500 MG TABLET (FP) PO PRN (13:31)
== END 2023-04-12 11:48 | disposition home or self-care (01) ==
LOC: JASU-SURG 04:19
PROVIDERS: ATTEND Pain Medicine Pain Medicine
PROC: 01HY3MZ Insertion of Neurostimulator Lead into Peripheral Nerve, Percutaneous Approach (ICD-10-PCS; principal; 2023-04-12 10:30)
DX: G89.4 Chronic pain syndrome (principal); M25.511 Pain in right shoulder
CPT/HCPCS: 64555; C1778

== ENCOUNTER 2023-05-06 04:02 | Day surgery (SDC) | payer OTHER, MEDICARE ==
[2023-05-04 13:58] VITALS: BMI 29.7
[2023-05-06 07:13] VITALS: RESP 18
[2023-05-06] MEDS ORDERED: LIDOCAINE HCL/PF 1% SDV 5ML VIAL ONE (07:22)
[2023-05-06 10:46] VITALS: BP 129/72; PULSE 70; TEMP 98.2
[2023-05-06 12:01] LABS: HIV INTERPRETATION NEGATIVE (NEGATIVE)
[2023-05-06] MEDS ORDERED: ACETAMINOPHEN 500 MG TABLET (FP) PO PRN (21:11)
== END 2023-05-06 09:50 | disposition home or self-care (01) ==
LOC: JASU-SURG 04:02
PROVIDERS: ATTEND Pain Medicine Pain Medicine
PROC: 01HY3MZ Insertion of Neurostimulator Lead into Peripheral Nerve, Percutaneous Approach (ICD-10-PCS; principal; 2023-05-06 08:00)
DX: G89.4 Chronic pain syndrome (principal)
CPT/HCPCS: 64555; C1778; 36415; 76000-TC-FY; 84460; 86803; 87340; 87389

== ENCOUNTER 2023-08-18 11:22 | Inpatient (IN) | payer OTHER, MEDICARE ==
[2023-08-18] MEDS ORDERED: ACETAMINOPHEN 1000 MG/100 ML BAG IVPB ONE (12:32)
[2023-08-18] MEDS ORDERED: SODIUM CHLORIDE 0.9% 500 ML INFUS.BAG IV ONE (12:32)
[2023-08-18] MEDS ORDERED: ACETAMINOPHEN INJECTION 100 ML IVPB ONE (12:57)
[2023-08-18] MEDS ORDERED: oxyCODONE HCL 5 MG TABLET PO ONE (13:05)
[2023-08-18] MEDS ORDERED: oxyCODONE HCL 5 MG TABLET ONE (13:08)
[2023-08-18 13:22] LABS: VENOUS BASE EXCESS 2.2 mmol/L (-2-2); VENOUS O2 SATURATION 29.5 % (70-80); VENOUS PCO2 47.1 mmHg (38-52); VENOUS PH 7.392 (7.310-7.410)
[2023-08-18 13:27] LABS: BASO % 0.2 % (0-2.0); EOS % 0.1 % (0-4.5); HEMATOCRIT 39.4 % (35.4-49); HEMOGLOBIN 13.3 GM/dL (11.7-16.9); MCH 30.2 pg (25.7-33.7); MCHC 33.8 g/dl (32.0-35.9); MEAN CELL VOLUME 89.3 fl (80-96); MEAN PLT VOLUME 8.1 fl (7.5-11.1); NEUT % 86.7 % (42.8-82.8); PLATELET COUNT 223 10^3/uL (134-434); RBC 4.41 M/mm3 (4.00-5.60); RDW 14.8 % (11.9-15.9); WHITE BLOOD COUNT 14.1 K/mm3 (4.0-10.0)
[2023-08-18 13:36] LABS: INR 1.18 (0.83-1.09); PROTHROMBIN TIME (PATIENT) 13.7 SEC (9.7-13.0)
[2023-08-18 13:38] LABS: ACTIVATED PTT 29.3 SECONDS (25.2-36.5)
[2023-08-18 13:47] LABS: POTASSIUM 3.9 mmol/L (3.5-5.1)
[2023-08-18 13:49] LABS: ALBUMIN 3.5 g/dl (3.4-5.0); BLOOD UREA NITROGEN 21.5 mg/dL (7-18); CALCIUM 8.9 mg/dL (8.5-10.1)
[2023-08-18 13:52] LABS: CREATININE 1.3 mg/dL (0.55-1.3)
[2023-08-18 13:54] LABS: BILIRUBIN,TOTAL 0.8 mg/dL (0.2-1)
[2023-08-18 15:08] LABS: EPI CELLS 2 /uL (0-25.1); HYALINE CASTS 0 /uL (0-3.1); PH,URINE 5.5 (5.0-8.0); URINE APPEARANCE CLOUDY; URINE BACTERIA 8826 /uL (0-1359); URINE BILIRUBIN NEGATIVE (NEGATIVE); URINE COLOR YELLOW; URINE GLUCOSE (UA) NEGATIVE (NEGATIVE); URINE KETONE TRACE (NEGATIVE); URINE LEUK ESTERASE 2+ (NEGATIVE); URINE NITRITE NEGATIVE (NEGATIVE); URINE PROTEIN 1+ (NEGATIVE); URINE RBC 47 /uL (0-23.9); URINE WBC 1546 /uL (0-25.8)
[2023-08-18] MEDS ORDERED: CEFTRIAXONE 1 GM in DEXTROSE 5%-WATER - 100 ML IVPB ONE (15:31)
[2023-08-18] MEDS ORDERED: CEFTRIAXONE 1 GM/50 ML BAG ONE (16:10)
[2023-08-18] MEDS ORDERED: ACETAMINOPHEN 1000 MG/100 ML BAG IVPB PRN (18:30)
[2023-08-18] MEDS ORDERED: MELATONIN 5 MG TABLETS PO PRN (18:31)
[2023-08-18] MEDS ORDERED: CYCLOBENZAPRINE HCL 10 MG TABLET (FP) PO PRN (18:48)
[2023-08-18] MEDS: oxyCODONE HCL 5 MG TABLET PO PRN (20:33)
[2023-08-18 21:06] VITALS: BMI 28.5
[2023-08-18] MEDS ORDERED: INSULIN (NOVOLOG) ASPART 100 UNITS/ML 10ML VIAL ONE (21:18)
[2023-08-18] MEDS: DOCUSATE SODIUM 100 MG CAPSULE (FP) PO SCH (21:28)
[2023-08-18] MEDS: HEPARIN NA (PORCINE) 5,000 UNITS/ML 1ML VIAL SQ SCH (21:28)
[2023-08-18] MEDS: INSULIN (NOVOLOG) ASPART 100 UNITS/ML 10ML VIAL SQ SCH (21:34)
[2023-08-19] MEDS: oxyCODONE HCL 5 MG TABLET PO PRN ×3 (02:11→18:52)
[2023-08-19] MEDS: HEPARIN NA (PORCINE) 5,000 UNITS/ML 1ML VIAL SQ SCH ×3 (06:47→21:34)
[2023-08-19] MEDS: INSULIN (NOVOLOG) ASPART 100 UNITS/ML 10ML VIAL SQ SCH ×4 (06:54→21:43)
[2023-08-19 08:37] LABS: BASO % 0.2 % (0-2.0); EOS % 0.1 % (0-4.5); HEMOGLOBIN 12.4 GM/dL (11.7-16.9); LYMPH % 7.4 % (8-40); MCH 29.7 pg (25.7-33.7); MCHC 32.7 g/dl (32.0-35.9); MEAN CELL VOLUME 90.9 fl (80-96); MEAN PLT VOLUME 7.9 fl (7.5-11.1); MONO % 5.7 % (3.8-10.2); NEUT % 86.6 % (42.8-82.8); PLATELET COUNT 199 10^3/uL (134-434); RBC 4.18 M/mm3 (4.00-5.60); RDW 14.6 % (11.9-15.9)
[2023-08-19 09:08] LABS: POTASSIUM 3.6 mmol/L (3.5-5.1)
[2023-08-19] MEDS ORDERED: cefTRIAXone SODIUM 1 GM VIAL ONE (09:23)
[2023-08-19 09:26] LABS: BLOOD UREA NITROGEN 15.1 mg/dL (7-18)
[2023-08-19 09:27] LABS: CALCIUM 8.6 mg/dL (8.5-10.1); MAGNESIUM 1.9 mg/dL (1.8-2.4)
[2023-08-19 09:29] LABS: PHOSPHOROUS 1.8 mg/dL (2.5-4.9)
[2023-08-19 09:34] LABS: TOT PROT 6.3 g/dl (6.4-8.2)
[2023-08-19] MEDS: CEFTRIAXONE 1 GM in DEXTROSE 5%-WATER - 50 ML IVPB SCH (10:02)
[2023-08-19] MEDS ORDERED: NAPH,MB-DB/K PH,MBDB POWDER PACKET PO ONE (10:15)
[2023-08-19] MEDS: LEVOTHYROXINE NA 112 MCG TABLET (FP) PO SCH (15:23)
[2023-08-19] MEDS: DULoxetine HCL 30 MG CAPSULE.DR PO SCH (15:23)
[2023-08-19] MEDS ORDERED: INSULIN (NOVOLOG) ASPART 100 UNITS/ML 10ML VIAL ONE (21:06)
[2023-08-19] MEDS: POLYETHYLENE GLYCOL (HEALTHYLAX) 3350 17 GM PACKET PO SCH (21:34)
[2023-08-19] MEDS: DOCUSATE SODIUM 100 MG CAPSULE (FP) PO SCH (21:34)
[2023-08-19] MEDS: GABAPENTIN 300 MG CAPSULE PO SCH (21:34)
[2023-08-19] MEDS: DOXAZOSIN MESYLATE 4 MG TABLET PO SCH (22:11)
[2023-08-20] MEDS: HEPARIN NA (PORCINE) 5,000 UNITS/ML 1ML VIAL SQ SCH ×3 (05:36→21:37)
[2023-08-20] MEDS: LEVOTHYROXINE NA 112 MCG TABLET (FP) PO SCH (06:01)
[2023-08-20] MEDS: INSULIN (NOVOLOG) ASPART 100 UNITS/ML 10ML VIAL SQ SCH ×4 (06:02→21:37)
[2023-08-20 08:08] LABS: HEMATOCRIT 35.6 % (35.4-49); HEMOGLOBIN 11.9 GM/dL (11.7-16.9); MCH 29.9 pg (25.7-33.7); MCHC 33.3 g/dl (32.0-35.9); MEAN CELL VOLUME 89.9 fl (80-96); MEAN PLT VOLUME 8.6 fl (7.5-11.1); PLATELET COUNT 176 10^3/uL (134-434); RBC 3.96 M/mm3 (4.00-5.60); RDW 14.4 % (11.9-15.9)
[2023-08-20 08:24] LABS: POTASSIUM 3.7 mmol/L (3.5-5.1)
[2023-08-20 08:31] LABS: ALBUMIN 2.9 g/dl (3.4-5.0); BLOOD UREA NITROGEN 15.1 mg/dL (7-18); CALCIUM 8.5 mg/dL (8.5-10.1); MAGNESIUM 1.7 mg/dL (1.8-2.4)
[2023-08-20 08:34] LABS: CREATININE 0.8 mg/dL (0.55-1.3); PHOSPHOROUS 1.8 mg/dL (2.5-4.9)
[2023-08-20 08:36] LABS: TOT PROT 6.3 g/dl (6.4-8.2)
[2023-08-20 08:38] LABS: BILIRUBIN,TOTAL 0.7 mg/dL (0.2-1)
[2023-08-20] MEDS: oxyCODONE HCL 5 MG TABLET PO PRN ×2 (08:56→21:58)
[2023-08-20] MEDS: DULoxetine HCL 30 MG CAPSULE.DR PO SCH (09:23)
[2023-08-20] MEDS: ASPIRIN COATED 81 MG TABLET.EC PO SCH (09:23)
[2023-08-20] MEDS: GABAPENTIN 300 MG CAPSULE PO SCH ×2 (09:24→21:37)
[2023-08-20] MEDS: POLYETHYLENE GLYCOL (HEALTHYLAX) 3350 17 GM PACKET PO SCH (09:24)
[2023-08-20] MEDS: CEFTRIAXONE 1 GM in DEXTROSE 5%-WATER - 50 ML IVPB SCH (09:25)
[2023-08-20] MEDS ORDERED: MAGNESIUM OXIDE 400 MG TABLET (FP) PO ONE (11:17)
[2023-08-20] MEDS: NAPH,MB-DB/K PH,MBDB POWDER PACKET PO SCH ×2 (13:32→21:37)
[2023-08-20] MEDS: DOCUSATE SODIUM 100 MG CAPSULE (FP) PO SCH (21:36)
[2023-08-20] MEDS: DOXAZOSIN MESYLATE 4 MG TABLET PO SCH (21:38)
[2023-08-21] MEDS: LEVOTHYROXINE NA 112 MCG TABLET (FP) PO SCH (06:00)
[2023-08-21] MEDS: HEPARIN NA (PORCINE) 5,000 UNITS/ML 1ML VIAL SQ SCH ×3 (06:00→22:14)
[2023-08-21] MEDS: NAPH,MB-DB/K PH,MBDB POWDER PACKET PO SCH (06:00)
[2023-08-21] MEDS: INSULIN (NOVOLOG) ASPART 100 UNITS/ML 10ML VIAL SQ SCH ×4 (06:01→22:14)
[2023-08-21] MEDS ORDERED: cefTRIAXone SODIUM 1 GM VIAL ONE (09:08)
[2023-08-21] MEDS: DULoxetine HCL 30 MG CAPSULE.DR PO SCH (09:18)
[2023-08-21] MEDS: ASPIRIN COATED 81 MG TABLET.EC PO SCH (09:18)
[2023-08-21] MEDS: GABAPENTIN 300 MG CAPSULE PO SCH ×2 (09:18→22:14)
[2023-08-21] MEDS: CEFTRIAXONE 1 GM in DEXTROSE 5%-WATER - 50 ML IVPB SCH (09:19)
[2023-08-21] MEDS: POLYETHYLENE GLYCOL (HEALTHYLAX) 3350 17 GM PACKET PO SCH (09:19)
[2023-08-21 10:22] LABS: HEMATOCRIT 37.4 % (35.4-49); HEMOGLOBIN 12.1 GM/dL (11.7-16.9); MCH 29.3 pg (25.7-33.7); MCHC 32.3 g/dl (32.0-35.9); MEAN CELL VOLUME 90.6 fl (80-96); MEAN PLT VOLUME 8.3 fl (7.5-11.1); PLATELET COUNT 198 10^3/uL (134-434); RBC 4.13 M/mm3 (4.00-5.60); RDW 14.3 % (11.9-15.9); WHITE BLOOD COUNT 3.6 K/mm3 (4.0-10.0)
[2023-08-21 10:42] LABS: ALBUMIN 2.8 g/dl (3.4-5.0); BLOOD UREA NITROGEN 13.8 mg/dL (7-18); CALCIUM 8.6 mg/dL (8.5-10.1); MAGNESIUM 1.9 mg/dL (1.8-2.4)
[2023-08-21 10:45] LABS: PHOSPHOROUS 2.9 mg/dL (2.5-4.9)
[2023-08-21 10:46] LABS: CREATININE 0.9 mg/dL (0.55-1.3)
[2023-08-21 10:47] LABS: BILIRUBIN,TOTAL 0.4 mg/dL (0.2-1); TOT PROT 6.5 g/dl (6.4-8.2)
[2023-08-21] MEDS: oxyCODONE HCL 5 MG TABLET PO PRN ×2 (10:47→20:15)
[2023-08-21 15:57] VITALS: RESP 18
[2023-08-21] MEDS: DOXAZOSIN MESYLATE 4 MG TABLET PO SCH (22:14)
[2023-08-21] MEDS: DOCUSATE SODIUM 100 MG CAPSULE (FP) PO SCH (22:14)
[2023-08-22] MEDS: HEPARIN NA (PORCINE) 5,000 UNITS/ML 1ML VIAL SQ SCH ×3 (06:03→21:10)
[2023-08-22] MEDS: oxyCODONE HCL 5 MG TABLET PO PRN ×2 (06:03→17:41)
[2023-08-22] MEDS: INSULIN (NOVOLOG) ASPART 100 UNITS/ML 10ML VIAL SQ SCH ×4 (06:04→21:13)
[2023-08-22] MEDS: LEVOTHYROXINE NA 112 MCG TABLET (FP) PO SCH (06:04)
[2023-08-22] MEDS ORDERED: cefTRIAXone SODIUM 1 GM VIAL ONE (09:06)
[2023-08-22] MEDS: CEFTRIAXONE 1 GM in DEXTROSE 5%-WATER - 50 ML IVPB SCH (09:19)
[2023-08-22] MEDS: ASPIRIN COATED 81 MG TABLET.EC PO SCH (09:20)
[2023-08-22] MEDS: LORATADINE 10 MG TABLET PO SCH (09:20)
[2023-08-22] MEDS: GABAPENTIN 300 MG CAPSULE PO SCH ×2 (09:20→21:10)
[2023-08-22] MEDS: DULoxetine HCL 30 MG CAPSULE.DR PO SCH (09:20)
[2023-08-22] MEDS: POLYETHYLENE GLYCOL (HEALTHYLAX) 3350 17 GM PACKET PO SCH ×2 (09:20→09:26)
[2023-08-22 10:08] LABS: HEMATOCRIT 34.6 % (35.4-49); MCH 30.8 pg (25.7-33.7); MCHC 34.9 g/dl (32.0-35.9); MEAN CELL VOLUME 88.3 fl (80-96); MEAN PLT VOLUME 7.7 fl (7.5-11.1); PLATELET COUNT 209 10^3/uL (134-434); RBC 3.91 M/mm3 (4.00-5.60); RDW 14.2 % (11.9-15.9); WHITE BLOOD COUNT 3.7 K/mm3 (4.0-10.0)
[2023-08-22 10:43] LABS: POTASSIUM 4.1 mmol/L (3.5-5.1)
[2023-08-22 10:46] LABS: ALBUMIN 2.7 g/dl (3.4-5.0); CALCIUM 8.8 mg/dL (8.5-10.1); MAGNESIUM 1.9 mg/dL (1.8-2.4)
[2023-08-22 10:49] LABS: CREATININE 0.9 mg/dL (0.55-1.3); PHOSPHOROUS 3.3 mg/dL (2.5-4.9)
[2023-08-22 10:51] LABS: BILIRUBIN,TOTAL 0.4 mg/dL (0.2-1); TOT PROT 6.3 g/dl (6.4-8.2)
[2023-08-22] MEDS ORDERED: INSULIN (NOVOLOG) ASPART 100 UNITS/ML 10ML VIAL ONE (21:03)
[2023-08-22] MEDS: DOCUSATE SODIUM 100 MG CAPSULE (FP) PO SCH (21:10)
[2023-08-22] MEDS: DOXAZOSIN MESYLATE 4 MG TABLET PO SCH (21:10)
[2023-08-23] MEDS: oxyCODONE HCL 5 MG TABLET PO PRN (02:20)
[2023-08-23] MEDS: HEPARIN NA (PORCINE) 5,000 UNITS/ML 1ML VIAL SQ SCH (05:58)
[2023-08-23] MEDS: LEVOTHYROXINE NA 112 MCG TABLET (FP) PO SCH (06:00)
[2023-08-23] MEDS: INSULIN (NOVOLOG) ASPART 100 UNITS/ML 10ML VIAL SQ SCH ×2 (06:00→11:33)
[2023-08-23 08:14] VITALS: BP 115/55; TEMP 98.4
[2023-08-23 08:59] VITALS: PULSE 73
[2023-08-23] MEDS ORDERED: cefTRIAXone SODIUM 1 GM VIAL ONE (09:25)
[2023-08-23] MEDS: CEFTRIAXONE 1 GM in DEXTROSE 5%-WATER - 50 ML IVPB SCH (09:44)
[2023-08-23] MEDS: GABAPENTIN 300 MG CAPSULE PO SCH (09:44)
[2023-08-23] MEDS: DULoxetine HCL 30 MG CAPSULE.DR PO SCH (09:44)
[2023-08-23] MEDS: POLYETHYLENE GLYCOL (HEALTHYLAX) 3350 17 GM PACKET PO SCH (09:44)
[2023-08-23] MEDS: ASPIRIN COATED 81 MG TABLET.EC PO SCH (09:44)
[2023-08-23] MEDS: LORATADINE 10 MG TABLET PO SCH (09:44)
[2023-08-23 10:49] LABS: HEMATOCRIT 36.3 % (35.4-49); HEMOGLOBIN 12.3 GM/dL (11.7-16.9); MCH 30.4 pg (25.7-33.7); MEAN CELL VOLUME 89.5 fl (80-96); MEAN PLT VOLUME 7.5 fl (7.5-11.1); PLATELET COUNT 231 10^3/uL (134-434); RBC 4.06 M/mm3 (4.00-5.60); RDW 13.8 % (11.9-15.9); WHITE BLOOD COUNT 4.6 K/mm3 (4.0-10.0)
[2023-08-23 11:41] LABS: POTASSIUM 3.9 mmol/L (3.5-5.1)
[2023-08-23 11:44] LABS: ALBUMIN 2.9 g/dl (3.4-5.0); CALCIUM 8.9 mg/dL (8.5-10.1)
[2023-08-23 11:46] LABS: BLOOD UREA NITROGEN 18.5 mg/dL (7-18); MAGNESIUM 1.8 mg/dL (1.8-2.4)
[2023-08-23 11:48] LABS: CREATININE 0.8 mg/dL (0.55-1.3)
[2023-08-23 11:49] LABS: BILIRUBIN,TOTAL 0.4 mg/dL (0.2-1); TOT PROT 6.5 g/dl (6.4-8.2)
== END 2023-08-23 12:12 | disposition home or self-care (01) | DRG 683 ==
LOC: JER 11:22 → JERBED 15:37 → J6S 18:58 → OBSVTOIN 08-19 13:37
PROVIDERS: ADMIT Internal Medicine; ATTEND Internal Medicine
DX: N17.9 Acute kidney failure, unspecified (principal); N39.0 Urinary tract infection, site not specified; E03.9 Hypothyroidism, unspecified; E11.40 Type 2 diabetes mellitus with diabetic neuropathy, unspecified; M47.9 Spondylosis, unspecified; G89.29 Other chronic pain; M54.89 Other dorsalgia; G47.00 Insomnia, unspecified; B96.20 Unspecified Escherichia coli [E. coli] as the cause of diseases classified elsewhere; Z96.653 Presence of artificial knee joint, bilateral; N40.0 Benign prostatic hyperplasia without lower urinary tract symptoms; Z98.84 Bariatric surgery status
CPT/HCPCS: 0241U-QW; 36415; 71045-TC-FY; 72131-TC; 74177-TC; 80053; 81003; 82550; 82553; 82803; 82962; 83605; 83735; 84100; 84484; 85025; 85027; 85610; 85730; 86850; 86900; 86901; 87086; 87186; 93005; 93010; 94660; 97116-GP; 97162-GP; 99285-25; G0378; J1644; Q9967

== ENCOUNTER → 2023-09-12 | Day surgery (SDC) | payer OTHER, MEDICARE ==
[2023-09-07 14:39] VITALS: BMI 29.8
[~2023-09-12] MED LIST changes: -LIDOCAINE HCL 1% PRESERVATIVE FREE - 30ML VIAL IJ ONE; +SIMETHICONE 40 MG/0.6 ML BOTTLE ONE
[2023-09-12 09:43] VITALS: BP 154/75; PULSE 75; RESP 18; TEMP 97.9
== END | disposition home or self-care (01) ==
LOC: JASU-ENDO 05:10
PROVIDERS: ATTEND Internal Medicine Gastroenterology
PROC: 0DB68ZX Excision of Stomach, Via Natural or Artificial Opening Endoscopic, Diagnostic (ICD-10-PCS; 2023-09-12)
PROC: 0DB78ZX Excision of Stomach, Pylorus, Via Natural or Artificial Opening Endoscopic, Diagnostic (ICD-10-PCS; 2023-09-12)
PROC: 0DD38ZX Extraction of Lower Esophagus, Via Natural or Artificial Opening Endoscopic, Diagnostic (ICD-10-PCS; 2023-09-12)
PROC: 0DD28ZX Extraction of Middle Esophagus, Via Natural or Artificial Opening Endoscopic, Diagnostic (ICD-10-PCS; 2023-09-12)
PROC: 0DBL8ZX Excision of Transverse Colon, Via Natural or Artificial Opening Endoscopic, Diagnostic (ICD-10-PCS; principal; 2023-09-12 08:00)
DX: Z12.11 Encounter for screening for malignant neoplasm of colon (principal); D12.3 Benign neoplasm of transverse colon; K64.8 Other hemorrhoids; K57.30 Diverticulosis of large intestine without perforation or abscess without bleeding; B37.81 Candidal esophagitis; K29.50 Unspecified chronic gastritis without bleeding; Z98.84 Bariatric surgery status
CPT/HCPCS: 82962; 88104; 88305-TC; 88342-TC

== ENCOUNTER 2023-10-31 12:57 | Inpatient (IN) | payer OTHER, MEDICARE ==
[2023-10-31] MEDS ORDERED: ACETAMINOPHEN 1000 MG/100 ML BAG IVPB ONE (14:16)
[2023-10-31 15:46] LABS: BASO % 0.9 % (0-2.0); EOS % 1.8 % (0-4.5); HEMATOCRIT 39.2 % (35.4-49); HEMOGLOBIN 13.3 GM/dL (11.7-16.9); LYMPH % 31.4 % (8-40); MCHC 33.8 g/dl (32.0-35.9); MEAN CELL VOLUME 91.7 fl (80-96); MEAN PLT VOLUME 8.2 fl (7.5-11.1); MONO % 9.5 % (3.8-10.2); NEUT % 56.4 % (42.8-82.8); PLATELET COUNT 251 10^3/uL (134-434); RBC 4.28 M/mm3 (4.00-5.60); RDW 14.7 % (11.9-15.9); WHITE BLOOD COUNT 6.8 K/mm3 (4.0-10.0)
[2023-10-31] MEDS ORDERED: ACETAMINOPHEN INJECTION 100 ML IVPB ONE (15:46)
[2023-10-31 16:03] LABS: POTASSIUM 4.7 mmol/L (3.5-5.1)
[2023-10-31 16:05] LABS: URINE APPEARANCE CLEAR; URINE BILIRUBIN NEGATIVE (NEGATIVE); URINE COLOR YELLOW; URINE GLUCOSE (UA) NEGATIVE (NEGATIVE); URINE KETONE NEGATIVE (NEGATIVE); URINE LEUK ESTERASE NEGATIVE (NEGATIVE); URINE NITRITE NEGATIVE (NEGATIVE); URINE PROTEIN NEGATIVE (NEGATIVE)
[2023-10-31 16:06] LABS: ALBUMIN 3.6 g/dl (3.4-5.0); BLOOD UREA NITROGEN 18.1 mg/dL (7-18)
[2023-10-31 16:11] LABS: BILIRUBIN,TOTAL 0.6 mg/dL (0.2-1)
[2023-10-31 16:34] LABS: CREATININE 0.9 mg/dL (0.55-1.3)
[2023-10-31 17:24] LABS: INR 1.03 (0.83-1.09)
[2023-10-31 17:27] LABS: ACTIVATED PTT 28.7 SECONDS (25.2-36.5)
[2023-10-31] MEDS ORDERED: ASPIRIN 81 MG CHEWABLE TABLETS PO ONE (17:42)
[2023-10-31] MEDS ORDERED: NITROGLYCERIN SUBLINGUAL 1/150 0.4 MG TAB SL ONE (17:52)
[2023-10-31] MEDS ORDERED: LIDOCAINE 4% PATCH TP ONE ×2 (18:26→18:43)
[2023-10-31] MEDS ORDERED: NITROGLYCERIN SUBLINGUAL 1/150 0.4 MG TAB SL PRN (18:27)
[2023-10-31] MEDS ORDERED: NITROGLYCERIN SUBLINGUAL 1/150 0.4 MG TAB ONE (18:43)
[2023-10-31] MEDS ORDERED: ASPIRIN 81 MG CHEWABLE TABLETS ONE (18:43)
[2023-10-31] MEDS: INSULIN SLIDING SCALE (NOVOLOG) 1 VIAL SQ SCH (21:18)
[2023-10-31] MEDS: INSULIN (LEVEMIR) 100 UNITS/ML UNITS SQ SCH (21:27)
[2023-10-31] MEDS: DOXAZOSIN MESYLATE 4 MG TABLET PO SCH (21:36)
[2023-11-01 06:32] LABS: HEMATOCRIT 38.6 % (35.4-49); HEMOGLOBIN 12.9 GM/dL (11.7-16.9); MCH 30.3 pg (25.7-33.7); MCHC 33.4 g/dl (32.0-35.9); MEAN CELL VOLUME 90.7 fl (80-96); MEAN PLT VOLUME 8.1 fl (7.5-11.1); PLATELET COUNT 249 10^3/uL (134-434); RBC 4.26 M/mm3 (4.00-5.60); RDW 14.5 % (11.9-15.9); WHITE BLOOD COUNT 6.6 K/mm3 (4.0-10.0)
[2023-11-01] MEDS ORDERED: LIDOCAINE PATCH REMOVAL MC ONE (07:00)
[2023-11-01 07:20] LABS: POTASSIUM 4.3 mmol/L (3.5-5.1)
[2023-11-01] MEDS ORDERED: LIDOCAINE 4% PATCH TP ONE (07:21)
[2023-11-01 07:24] LABS: BLOOD UREA NITROGEN 21.4 mg/dL (7-18); MAGNESIUM 1.9 mg/dL (1.8-2.4)
[2023-11-01 07:27] LABS: CREATININE 0.9 mg/dL (0.55-1.3)
[2023-11-01] MEDS: INSULIN (LEVEMIR) 100 UNITS/ML UNITS SQ SCH ×2 (07:33→22:46)
[2023-11-01] MEDS: INSULIN SLIDING SCALE (NOVOLOG) 1 VIAL SQ SCH ×4 (07:34→22:48)
[2023-11-01] MEDS: LEVOTHYROXINE NA 112 MCG TABLET (FP) PO SCH (07:35)
[2023-11-01] MEDS: ENOXAPARIN NA (PORCINE) 40 MG/0.4 ML DISP.SYRIN SQ SCH (10:48)
[2023-11-01] MEDS: ASPIRIN 81 MG CHEWABLE TABLETS PO SCH (10:48)
[2023-11-01] MEDS: GABAPENTIN 300 MG CAPSULE PO PRN ×2 (10:48→23:00)
[2023-11-01] MEDS: FENOFIBRIC ACID 135 MG CAP PO SCH (10:48)
[2023-11-01] MEDS: DULoxetine HCL 30 MG CAPSULE.DR PO SCH (10:48)
[2023-11-01] MEDS ORDERED: REGADENOSON 0.4 MG/5 ML PRE-FILLED SYRINGE IVPUSH ONE ×2 (11:21→11:45)
[2023-11-01 20:50] VITALS: RESP 18
[2023-11-01 21:38] VITALS: BMI 30.7
[2023-11-01] MEDS: DOXAZOSIN MESYLATE 4 MG TABLET PO SCH (22:45)
[2023-11-02] MEDS: INSULIN (LEVEMIR) 100 UNITS/ML UNITS SQ SCH ×2 (06:16→22:31)
[2023-11-02] MEDS: INSULIN SLIDING SCALE (NOVOLOG) 1 VIAL SQ SCH ×4 (06:17→22:49)
[2023-11-02] MEDS: LEVOTHYROXINE NA 112 MCG TABLET (FP) PO SCH (06:20)
[2023-11-02] MEDS: ASPIRIN 81 MG CHEWABLE TABLETS PO SCH (09:17)
[2023-11-02] MEDS: DULoxetine HCL 30 MG CAPSULE.DR PO SCH (09:17)
[2023-11-02] MEDS: FENOFIBRIC ACID 135 MG CAP PO SCH ×2 (09:17→10:00)
[2023-11-02] MEDS: ENOXAPARIN NA (PORCINE) 40 MG/0.4 ML DISP.SYRIN SQ SCH (09:17)
[2023-11-02] MEDS: MULTIVITAMINS (DAILY MVI) TABLET (FP) PO SCH (09:24)
[2023-11-02] MEDS ORDERED: metoPROLOL SUCCINATE 25 MG TAB.SR.24H (FP) PO SCH (10:15)
[2023-11-02] MEDS ORDERED: oxyCODONE HCL 5 MG TABLET PO PRN (10:27)
[2023-11-02] MEDS: GABAPENTIN 300 MG CAPSULE PO PRN (10:34)
[2023-11-02] MEDS: ASPIRIN COATED 81 MG TABLET.EC PO SCH (10:34)
[2023-11-02] MEDS: metoPROLOL SUCCINATE 25 MG TAB.SR.24H (FP) PO SCH (10:34)
[2023-11-02] MEDS ORDERED: FENOFIBRIC ACID 135 MG CAP PO SCH (22:00)
[2023-11-02] MEDS: DOXAZOSIN MESYLATE 4 MG TABLET PO SCH (22:31)
[2023-11-02] MEDS ORDERED: INSULIN (NOVOLOG) ASPART 100 UNITS/ML 10ML VIAL ONE (22:48)
[2023-11-03] MEDS ORDERED: INSULIN (NOVOLOG) ASPART 100 UNITS/ML 10ML VIAL ONE ×2 (06:04→12:20)
[2023-11-03] MEDS: INSULIN SLIDING SCALE (NOVOLOG) 1 VIAL SQ SCH ×2 (06:06→12:06)
[2023-11-03] MEDS: INSULIN (LEVEMIR) 100 UNITS/ML UNITS SQ SCH (06:06)
[2023-11-03] MEDS: LEVOTHYROXINE NA 112 MCG TABLET (FP) PO SCH (06:06)
[2023-11-03 07:43] LABS: BASO % 0.6 % (0-2.0); EOS % 2.2 % (0-4.5); HEMATOCRIT 37.2 % (35.4-49); HEMOGLOBIN 12.5 GM/dL (11.7-16.9); LYMPH % 35.6 % (8-40); MCH 30.6 pg (25.7-33.7); MCHC 33.6 g/dl (32.0-35.9); MEAN CELL VOLUME 90.9 fl (80-96); MEAN PLT VOLUME 7.9 fl (7.5-11.1); MONO % 8.7 % (3.8-10.2); NEUT % 52.9 % (42.8-82.8); PLATELET COUNT 216 10^3/uL (134-434); RBC 4.09 M/mm3 (4.00-5.60); RDW 14.5 % (11.9-15.9); WHITE BLOOD COUNT 6.5 K/mm3 (4.0-10.0)
[2023-11-03 08:15] LABS: CHOLESTEROL 154 mg/dL (50-200); LDL CHOLESTEROL (ONLY SJRH) 88 mg/dL (5-100)
[2023-11-03 08:17] LABS: HDL CHOLESTEROL 54 mg/dL (40-60)
[2023-11-03 09:12] LABS: POTASSIUM 4.3 mmol/L (3.5-5.1)
[2023-11-03 09:23] LABS: ALBUMIN 3.2 g/dl (3.4-5.0); BLOOD UREA NITROGEN 22.4 mg/dL (7-18); CALCIUM 8.6 mg/dL (8.5-10.1); MAGNESIUM 1.9 mg/dL (1.8-2.4)
[2023-11-03 09:26] LABS: PHOSPHOROUS 3.4 mg/dL (2.5-4.9)
[2023-11-03 09:28] LABS: BILIRUBIN,TOTAL 0.6 mg/dL (0.2-1); TOT PROT 6.4 g/dl (6.4-8.2)
[2023-11-03 10:41] VITALS: TEMP 97.8
[2023-11-03] MEDS: ENOXAPARIN NA (PORCINE) 40 MG/0.4 ML DISP.SYRIN SQ SCH (10:46)
[2023-11-03] MEDS: ASPIRIN COATED 81 MG TABLET.EC PO SCH (10:46)
[2023-11-03] MEDS: MULTIVITAMINS (DAILY MVI) TABLET (FP) PO SCH (10:46)
[2023-11-03] MEDS: DULoxetine HCL 30 MG CAPSULE.DR PO SCH (10:46)
[2023-11-03] MEDS: metoPROLOL SUCCINATE 25 MG TAB.SR.24H (FP) PO SCH (10:46)
[2023-11-03] MEDS: GABAPENTIN 300 MG CAPSULE PO PRN (11:28)
[2023-11-03 14:04] VITALS: PULSE 59
[2023-11-03 15:58] VITALS: BP 130/55
== END 2023-11-03 15:55 | disposition home or self-care (01) | DRG 313 ==
LOC: JER 12:57 → JERBED 16:49 → J4W 11-01 20:35 → OBSVTOIN 11-02 09:14
PROVIDERS: ADMIT Internal Medicine; ATTEND Internal Medicine
DX: R07.9 Chest pain, unspecified (principal); I20.0 Unstable angina; E03.9 Hypothyroidism, unspecified; J44.9 Chronic obstructive pulmonary disease, unspecified; G47.33 Obstructive sleep apnea (adult) (pediatric); I10 Essential (primary) hypertension; R00.1 Bradycardia, unspecified; I25.9 Chronic ischemic heart disease, unspecified; R94.31 Abnormal electrocardiogram [ECG] [EKG]; E11.69 Type 2 diabetes mellitus with other specified complication; E78.2 Mixed hyperlipidemia
CPT/HCPCS: 36415; 70450-TC; 71045-TC-FY; 78452-TC; 80048; 80053; 80061; 81003; 82962; 83036; 83735; 84100; 84132; 84443; 84484; 85025; 85027; 85610; 85730; 87086; 93005; 93010; 93017; 94660; 97116-GP; 97161-GP; 99285-25; A9502; G0378; J2785

== ENCOUNTER 2024-01-02 12:35 | Emergency (ER) | payer OTHER, MEDICARE ==
[2024-01-02 13:05] VITALS: BP 136/84; PULSE 74; RESP 19; TEMP 98.7; BMI 28.0
[2024-01-02 15:29] LABS: BASO % 0.6 % (0-2.0); EOS % 0.7 % (0-4.5); HEMATOCRIT 40.4 % (35.4-49); HEMOGLOBIN 13.8 GM/dL (11.7-16.9); LYMPH % 17.4 % (8-40); MCH 31.2 pg (25.7-33.7); MCHC 34.2 g/dl (32.0-35.9); MEAN CELL VOLUME 91.5 fl (80-96); MEAN PLT VOLUME 7.5 fl (7.5-11.1); MONO % 8.8 % (3.8-10.2); NEUT % 72.5 % (42.8-82.8); PLATELET COUNT 177 10^3/uL (134-434); RBC 4.42 M/mm3 (4.00-5.60); RDW 14.9 % (11.9-15.9); WHITE BLOOD COUNT 5.7 K/mm3 (4.0-10.0)
[2024-01-02 15:55] LABS: POTASSIUM 4.5 mmol/L (3.5-5.1)
[2024-01-02 15:57] LABS: ALBUMIN 3.3 g/dl (3.4-5.0); BLOOD UREA NITROGEN 20.6 mg/dL (7-18); CALCIUM 9.8 mg/dL (8.5-10.1)
[2024-01-02 16:00] LABS: CREATININE 1.1 mg/dL (0.55-1.3)
[2024-01-02 16:02] LABS: BILIRUBIN,TOTAL 0.5 mg/dL (0.2-1); TOT PROT 6.7 g/dl (6.4-8.2)
[2024-01-02] MEDS ORDERED: ACETAMINOPHEN 500 MG TABLET (FP) ONE (17:24)
[2024-01-02] MEDS: ACETAMINOPHEN 500 MG TABLET (FP) PO ONE (17:26)
== END 2024-01-02 17:57 | disposition home or self-care (01) ==
LOC: JER 12:35
DX: M79.602 Pain in left arm (principal); U07.1 COVID-19
CPT/HCPCS: 0241U-QW; 36415; 71046-TC-FY; 80053; 85025; 99284-25

== ENCOUNTER 2024-01-04 10:44 | Emergency (ER) | payer OTHER, MEDICARE ==
[2024-01-04 11:54] VITALS: TEMP 97; BMI 30.5
[2024-01-04 14:38] LABS: BASO % 0.6 % (0-2.0); EOS % 4.8 % (0-4.5); HEMOGLOBIN 12.8 GM/dL (11.7-16.9); LYMPH % 30.6 % (8-40); MCH 30.8 pg (25.7-33.7); MCHC 33.8 g/dl (32.0-35.9); MEAN CELL VOLUME 91.1 fl (80-96); MEAN PLT VOLUME 7.3 fl (7.5-11.1); MONO % 11.3 % (3.8-10.2); NEUT % 52.7 % (42.8-82.8); PLATELET COUNT 209 10^3/uL (134-434); RBC 4.17 M/mm3 (4.00-5.60); RDW 14.5 % (11.9-15.9); WHITE BLOOD COUNT 4.3 K/mm3 (4.0-10.0)
[2024-01-04 15:03] LABS: POTASSIUM 4.4 mmol/L (3.5-5.1)
[2024-01-04 15:05] LABS: ALBUMIN 3.1 g/dl (3.4-5.0); CALCIUM 9.6 mg/dL (8.5-10.1)
[2024-01-04 15:06] LABS: BLOOD UREA NITROGEN 21.9 mg/dL (7-18)
[2024-01-04 15:10] LABS: BILIRUBIN,TOTAL 0.4 mg/dL (0.2-1); TOT PROT 6.5 g/dl (6.4-8.2)
[2024-01-04 16:47] LABS: URINE APPEARANCE CLEAR; URINE BILIRUBIN NEGATIVE (NEGATIVE); URINE COLOR YELLOW; URINE GLUCOSE (UA) TRACE (NEGATIVE); URINE KETONE NEGATIVE (NEGATIVE); URINE LEUK ESTERASE NEGATIVE (NEGATIVE); URINE NITRITE NEGATIVE (NEGATIVE); URINE PROTEIN NEGATIVE (NEGATIVE); URINE UROBILINOGEN 0.2 mg/dL (0.2-1.0)
[2024-01-04 18:41] VITALS: BP 101/61; PULSE 80; RESP 16
== END 2024-01-04 18:42 | disposition home or self-care (01) ==
LOC: JER 10:44
DX: M54.9 Dorsalgia, unspecified (principal); M25.511 Pain in right shoulder; R42 Dizziness and giddiness; W01.198A Fall on same level from slipping, tripping and stumbling with subsequent striking against other object, initial encounter
CPT/HCPCS: 36415; 70450-TC; 71045-TC-FY; 72125-TC; 72131-TC; 73030-TC-RT-FY; 80053; 81003; 84443; 84484; 85025; 87086; 93005; 93010; 99285-25

== ENCOUNTER 2024-01-13 13:00 | Emergency (ER) | payer OTHER, MEDICARE ==
[2024-01-13 13:25] VITALS: TEMP 97.4; BMI 30.4
[2024-01-13] MEDS ORDERED: ACETAMINOPHEN INJECTION 100 ML IVPB ONE (14:19)
[2024-01-13 14:53] LABS: BASO % 0.4 % (0-2.0); EOS % 1.7 % (0-4.5); HEMATOCRIT 38.6 % (35.4-49); HEMOGLOBIN 13.1 GM/dL (11.7-16.9); LYMPH % 23.5 % (8-40); MCH 30.9 pg (25.7-33.7); MCHC 33.8 g/dl (32.0-35.9); MEAN CELL VOLUME 91.5 fl (80-96); MEAN PLT VOLUME 8.1 fl (7.5-11.1); MONO % 7.4 % (3.8-10.2); PLATELET COUNT 294 10^3/uL (134-434); RBC 4.22 M/mm3 (4.00-5.60); RDW 14.7 % (11.9-15.9); WHITE BLOOD COUNT 7.3 K/mm3 (4.0-10.0)
[2024-01-13 15:01] LABS: INR 1.05 (0.83-1.09); PROTHROMBIN TIME (PATIENT) 12.2 SEC (9.7-13.0)
[2024-01-13 15:04] LABS: ACTIVATED PTT 27.6 SECONDS (25.2-36.5)
[2024-01-13 15:11] LABS: POTASSIUM 4.4 mmol/L (3.5-5.1)
[2024-01-13 15:14] LABS: ALBUMIN 3.2 g/dl (3.4-5.0); BLOOD UREA NITROGEN 19.4 mg/dL (7-18); CALCIUM 9.5 mg/dL (8.5-10.1)
[2024-01-13 15:16] LABS: CREATININE 1.1 mg/dL (0.55-1.3)
[2024-01-13 15:19] LABS: BILIRUBIN,TOTAL 0.5 mg/dL (0.2-1); TOT PROT 6.8 g/dl (6.4-8.2)
[2024-01-13] MEDS: ACETAMINOPHEN 1000 MG/100 ML BAG IVPB ONE (15:35)
[2024-01-13 20:44] VITALS: BP 146/70; PULSE 54; RESP 18
== END 2024-01-13 22:09 | disposition home or self-care (01) ==
LOC: JER 13:00
PROC: 3E033NZ Introduction of Analgesics, Hypnotics, Sedatives into Peripheral Vein, Percutaneous Approach (ICD-10-PCS; principal; 2024-01-13)
DX: R07.9 Chest pain, unspecified (principal)
CPT/HCPCS: 36415; 71045-TC-FY; 71275-TC; 76705-TC; 80053; 84484; 85025; 85379; 85610; 85730; 93005; 93010; 99285-25; J0131; Q9967

== ENCOUNTER 2024-05-26 19:41 | Emergency (ER) | payer OTHER, MEDICARE ==
[2024-05-26 19:47] VITALS: BP 141/70; PULSE 67; RESP 18; BMI 31.0
[2024-05-26 20:20] VITALS: TEMP 98.9
== END 2024-05-26 23:21 | disposition home or self-care (01) ==
LOC: JER 19:41
DX: S00.03XA Contusion of scalp, initial encounter (principal); W01.198A Fall on same level from slipping, tripping and stumbling with subsequent striking against other object, initial encounter; Y93.01 Activity, walking, marching and hiking
CPT/HCPCS: 70450-TC; 72125-TC; 72131-TC; 99284-25

== ENCOUNTER 2024-08-14 12:28 | Emergency (ER) | payer OTHER, MEDICARE ==
[2024-08-14 12:44] VITALS: BP 156/82; PULSE 63; RESP 17; TEMP 97.7; BMI 30.7
[2024-08-14] MEDS ORDERED: ACETAMINOPHEN 325 MG TABLET (FP) ONE (13:21)
[2024-08-14] MEDS: ACETAMINOPHEN 325 MG TABLET (FP) PO ONE (13:25)
== END 2024-08-14 14:47 | disposition home or self-care (01) ==
LOC: JER 12:28
DX: S00.83XA Contusion of other part of head, initial encounter (principal); S80.211A Abrasion, right knee, initial encounter; S80.212A Abrasion, left knee, initial encounter; W18.30XA Fall on same level, unspecified, initial encounter
CPT/HCPCS: 70450-TC; 70486-TC; 99284-25

== ENCOUNTER 2024-09-24 01:20 | Emergency (ER) | payer OTHER, MEDICARE ==
[2024-09-24 01:38] VITALS: BP 149/67; PULSE 86; RESP 18; TEMP 98.7; BMI 32.5
[2024-09-24] MEDS ORDERED: MECLIZINE HCL 25 MG TABLET (FP) ONE (02:17)
[2024-09-24 02:37] LABS: INR 0.95 (0.83-1.09); PROTHROMBIN TIME (PATIENT) 10.8 SEC (9.7-13.0)
[2024-09-24 02:39] LABS: ACTIVATED PTT 29.6 SECONDS (25.2-36.5)
[2024-09-24 02:41] LABS: POTASSIUM 4.3 mmol/L (3.5-5.1)
[2024-09-24 02:43] LABS: ALBUMIN 3.4 g/dl (3.4-5.0); BLOOD UREA NITROGEN 17.3 mg/dL (7-18); MAGNESIUM 1.6 mg/dL (1.8-2.4)
[2024-09-24 02:47] LABS: PHOSPHOROUS 2.8 mg/dL (2.5-4.9)
[2024-09-24 02:48] LABS: BILIRUBIN,TOTAL 0.4 mg/dL (0.2-1); TOT PROT 6.3 g/dl (6.4-8.2)
[2024-09-24] MEDS ORDERED: KETOROLAC TROMETHAMINE 15 MG/ML VIAL ONE (03:02)
[2024-09-24] MEDS ORDERED: MAGNESIUM SULFATE IN WATER 2 GM/50 ML IVPB IVPB ONE (03:02)
[2024-09-24] MEDS: KETOROLAC TROMETHAMINE 15 MG/ML VIAL IVPUSH ONE (03:11)
[2024-09-24] MEDS: MAGNESIUM SULFATE IN WATER 2 GM/50 ML IVPB IVPB ONE (03:11)
[2024-09-24] MEDS: MECLIZINE HCL 25 MG TABLET (FP) PO ONE (03:11)
[2024-09-24 04:52] LABS: BASO % 0.5 % (0-2.0); EOS % 1.9 % (0-4.5); HEMATOCRIT 40.7 % (35.4-49); HEMOGLOBIN 13.5 GM/dL (11.7-16.9); LYMPH % 26.4 % (8-40); MCH 31.4 pg (25.7-33.7); MCHC 33.3 g/dl (32.0-35.9); MEAN CELL VOLUME 94.4 fl (80-96); MEAN PLT VOLUME 8.9 fl (7.5-11.1); MONO % 10.8 % (3.8-10.2); NEUT % 60.4 % (42.8-82.8); PLATELET COUNT 214 10^3/uL (134-434); RBC 4.31 M/mm3 (4.00-5.60); RDW 14.2 % (11.9-15.9); WHITE BLOOD COUNT 6.6 K/mm3 (4.0-10.0)
== END 2024-09-24 04:47 | disposition home or self-care (01) ==
LOC: JER 01:20
PROC: 3E033GC Introduction of Other Therapeutic Substance into Peripheral Vein, Percutaneous Approach (ICD-10-PCS; principal; 2024-09-24)
PROC: 3E0333Z Introduction of Anti-inflammatory into Peripheral Vein, Percutaneous Approach (ICD-10-PCS; 2024-09-24)
DX: R42 Dizziness and giddiness (principal); R29.898 Other symptoms and signs involving the musculoskeletal system; M25.551 Pain in right hip; M25.552 Pain in left hip; G89.29 Other chronic pain; W18.30XA Fall on same level, unspecified, initial encounter
CPT/HCPCS: 36415; 70450-TC; 71045-TC-FY; 72170-TC-FY; 73521-TC-FY; 80053; 83735; 84100; 84484; 85025; 85610; 85730; 86850; 86900; 86901; 93005; 93010; 99285-25

== ENCOUNTER 2025-02-20 12:30 | Inpatient (IN) | payer OTHER, MEDICARE ==
[2025-02-20] MEDS ORDERED: ACETAMINOPHEN INJECTION 100 ML ONE (14:30)
[2025-02-20] MEDS ORDERED: oxyCODONE HCL 5 MG TABLET ONE (14:30)
[2025-02-20] MEDS: ACETAMINOPHEN 1000 MG/100 ML BAG IVPB ONE (14:35)
[2025-02-20] MEDS: oxyCODONE HCL 5 MG TABLET PO ONE (14:35)
[2025-02-20 14:39] LABS: PH,URINE 6.5 (5.0-8.0); URINE APPEARANCE CLEAR; URINE BILIRUBIN NEGATIVE (NEGATIVE); URINE COLOR YELLOW; URINE GLUCOSE (UA) 3+ (NEGATIVE); URINE KETONE NEGATIVE (NEGATIVE); URINE LEUK ESTERASE NEGATIVE (NEGATIVE); URINE NITRITE NEGATIVE (NEGATIVE); URINE PROTEIN NEGATIVE (NEGATIVE)
[2025-02-20 14:41] LABS: INR 1.03 (0.83-1.09); PROTHROMBIN TIME (PATIENT) 11.2 SEC (9.7-13.0)
[2025-02-20 14:59] LABS: POTASSIUM 4.3 mmol/L (3.5-5.1)
[2025-02-20 15:01] LABS: CALCIUM 9.2 mg/dL (8.5-10.1)
[2025-02-20 15:02] LABS: ALBUMIN 3.3 g/dl (3.4-5.0); BLOOD UREA NITROGEN 18.4 mg/dL (7-18); MAGNESIUM 1.8 mg/dL (1.8-2.4)
[2025-02-20 15:06] LABS: BILIRUBIN,TOTAL 0.6 mg/dL (0.2-1)
[2025-02-20 15:07] LABS: TOT PROT 6.2 g/dl (6.4-8.2)
[2025-02-20 15:27] LABS: HEMATOCRIT 40.1 % (40.1-51.0); HEMOGLOBIN 12.6 g/dL (13.7-17.5); MCHC 31.4 g/dl (32.3-36.5); MEAN CELL VOLUME 94.8 fl (79.0-92.2); MEAN PLT VOLUME 10.7 fl (9.4-12.4); PLATELET COUNT 202 x10^3/uL (163-337); RDW 13.5 % (12.2-16.6)
[2025-02-20 18:02] VITALS: BMI 31.3
[2025-02-20] MEDS: INSULIN ASPART SLIDING SCALE (NOVOLOG) 1 VIAL SQ SCH (18:08)
[2025-02-20] MEDS: LIDOCAINE 5% TOPICAL PATCH TP ONE (19:01)
[2025-02-20] MEDS: SODIUM CHLORIDE 1,000 ML IV SCH (21:41)
[2025-02-20] MEDS: GABAPENTIN 300 MG CAPSULE PO SCH (21:43)
[2025-02-20] MEDS: FAMOTIDINE 20 MG TABLET PO SCH (21:43)
[2025-02-20] MEDS: INSULIN GLARGINE (LANTUS) 100 UNITS/ML UNITS SQ SCH (21:50)
[2025-02-20] MEDS ORDERED: INSULIN GLARGINE (LANTUS) 100 UNITS/ML UNITS SQ SCH (22:00)
[2025-02-20] MEDS: LIDOCAINE PATCH REMOVAL MC SCH (22:09)
[2025-02-21] MEDS: ACETAMINOPHEN 325 MG TABLET (FP) PO PRN (00:16)
[2025-02-21] MEDS: KETOROLAC TROMETHAMINE 15 MG/ML VIAL IVPUSH ONE (03:16)
[2025-02-21] MEDS: LEVOTHYROXINE NA 112 MCG TABLET (FP) PO SCH (06:21)
[2025-02-21 07:57] LABS: POTASSIUM 3.8 mmol/L (3.5-5.1)
[2025-02-21 08:07] LABS: HEMATOCRIT 39.2 % (40.1-51.0); HEMOGLOBIN 12.4 g/dL (13.7-17.5); MCHC 31.6 g/dl (32.3-36.5); MEAN CELL VOLUME 94.9 fl (79.0-92.2); MEAN PLT VOLUME 10.3 fl (9.4-12.4); PLATELET COUNT 200 x10^3/uL (163-337); RDW 13.7 % (12.2-16.6)
[2025-02-21 08:09] LABS: MAGNESIUM 1.7 mg/dL (1.8-2.4)
[2025-02-21 08:12] LABS: CREATININE 0.9 mg/dL (0.55-1.3); PHOSPHOROUS 3.3 mg/dL (2.5-4.9)
[2025-02-21] MEDS: ENOXAPARIN NA (PORCINE) 40 MG/0.4 ML DISP.SYRIN SQ SCH (10:14)
[2025-02-21] MEDS: LIDOCAINE 5% TOPICAL PATCH TP SCH (10:14)
[2025-02-21] MEDS: FENOFIBRIC ACID 135 MG CAP PO SCH (10:15)
[2025-02-21] MEDS: metoPROLOL SUCCINATE 25 MG TAB.SR.24H (FP) PO SCH (10:15)
[2025-02-21] MEDS: DULoxetine HCL 30 MG CAPSULE.DR PO SCH (10:15)
[2025-02-21] MEDS: ASPIRIN COATED 81 MG TABLET.EC PO SCH (10:15)
[2025-02-21] MEDS: POLYETHYLENE GLYCOL (HEALTHYLAX) 3350 17 GM PACKET PO SCH (10:16)
[2025-02-21] MEDS: MAGNESIUM SULFATE IN WATER 2 GM/50 ML IVPB IVPB ONE (11:04)
[2025-02-22] MEDS: oxyCODONE HCL 5 MG TABLET PO PRN (10:25)
[2025-02-22] MEDS ORDERED: INSULIN ASPART SLIDING SCALE (NOVOLOG) 1 VIAL SQ ONE (11:43)
[2025-02-22] MEDS: DOCUSATE SODIUM 100 MG CAPSULE (FP) PO SCH (21:15)
[2025-02-23 01:51] VITALS: RESP 18
[2025-02-23] MEDS: oxyCODONE HCL 5 MG TABLET PO PRN (19:10)
[2025-02-25 08:37] VITALS: TEMP 97.7
[2025-02-25] MEDS ORDERED: INSULIN ASPART SLIDING SCALE (NOVOLOG) 1 VIAL SQ ONE (11:11)
[2025-02-25 12:38] VITALS: BP 141/69; PULSE 66
== END 2025-02-25 13:19 | DRG 554 ==
LOC: JER 12:30 → JERBED 14:56 → J8W 17:22 → OBSVTOIN 02-22 14:48
PROVIDERS: ADMIT Student in an Organized Health Care Education/Training Program; ATTEND Nurse Practitioner Acute Care
DX: M19.90 Unspecified osteoarthritis, unspecified site (principal); I25.10 Atherosclerotic heart disease of native coronary artery without angina pectoris; J44.9 Chronic obstructive pulmonary disease, unspecified; E11.9 Type 2 diabetes mellitus without complications; E03.9 Hypothyroidism, unspecified; I10 Essential (primary) hypertension; G47.33 Obstructive sleep apnea (adult) (pediatric); E78.00 Pure hypercholesterolemia, unspecified; E66.9 Obesity, unspecified; Z68.31 Body mass index [BMI] 31.0-31.9, adult
CPT/HCPCS: 36415; 80048; 80053; 81003; 82306; 82607; 82962; 83735; 84100; 84443; 85027; 85610; 85651; 85730; 86140; 87086; 87635; 93005; 93010; 94660; 97116-GP; 97161-GP; 99285-25; G0378; J0131